=== PATIENT | male | born 1965 | race Caucasian/White ===

== ENCOUNTER 2019-11-24 10:25 | Inpatient (IN) ==
[2019-11-24] MEDS ORDERED: CARBOHYDRATES FOR HYPOGLYCEMIA PO PRN (11:27)
[2019-11-24] MEDS ORDERED: GLUCOSE 40% GEL 15 GM TUBE PO PRN (11:27)
[2019-11-24] MEDS ORDERED: ACETAMINOPHEN 325 MG TAB PO PRN (11:27)
[2019-11-24] MEDS ORDERED: ONDANSETRON INJ 2 MG/ML 2 ML VIAL IV PRN (11:27)
[2019-11-24] MEDS ORDERED: GLUCOSE 10 TABS/TUBE PO PRN (11:27)
[2019-11-24] MEDS ORDERED: GLUCAGON FOR INJ 1 MG VIAL SQ PRN (11:27)
[2019-11-24] MEDS ORDERED: DEXTROSE 50% 50 ML SYRINGE IV PRN (11:27)
[2019-11-24] MEDS ORDERED: LACTATED RINGER'S 1,000 ML IV SCH (11:30)
[2019-11-24] MEDS ORDERED: KETOROLAC 30 MG/ML VIAL IV PRN (11:33)
--- NOTE | 2019-11-24 11:42 | History & Physical Report ---
Date of Service November 24, 2019 Assessment & Plan (1) Acute cholecystitis: -Admit to [facility] -Consulted Gastroenterology, Dr. Dash, plans for ERCP, continue n.p.o.- discussed with him - plan for ERCP today -Consider general surgery consult pending ERCP findings-discussed with Dr. Sutton over the phone earlier today -IV Zosyn -Pain control on board -EKG reviewed as above -Checking labs including CBC, PRP, LFT, INR, mag (2) Pancreatitis: -Lipase in process -Continue n.p.o. status -IV LR 125 mL/hr -Lipase elevated at OSH 9484, repeat labs now, trend with morning labs show improvement -Secondary to likely obstruction -CT reviewed from outside hospital: CBD and hepatic biliary tree normal, cholecystic fluid, no ultrasound was completed as there was not a tech, + hepatic steatosis and hepatomegaly (3) DM type 2 (diabetes mellitus, type 2): -Hold metformin and trulicity, last took medication yesterday (missed trulicity which was supposed to be dosed on Friday) -Continue ISS with Accu-Cheks ACHS -Check A1c with a.m. labs, reports last check was >9, and that physician had recommended he was on insulin. -Pt needs counseling on diet and carb restriction prior to d/c -Consider consulting cosmetology educator after surgical procedure (4) DVT prophylaxis: - tedjeannette, scd CODE: FULL Dispo: From home, likely to remain in the hospital x1 to 2 days History of Present Illness Primary Care Provider: Samir Gill This is a 54 yo M with PMHx of noninsulin dependent diabetes who presents from outside hospital, [place], for acute cholecystitis and pancreatitis. Patient's pain began on Friday. He had eaten a Whopper from [employer] on Friday for dinner and the pain began about 2 hrs later. On Friday he did not have any abd issues. Yesterday the patient proceeded to go about his normal ADLs, but then had dinner which was scrapple fried in butter, and reported that his pain worsened over the course of the next 5 hours. He admits to drinking socially over the weekend prior to sx - had [place] x 5 drinks on Friday and also had two beers on Friday night. He presented to [facility] last evening was found to have a WBC = 18 K, bilirubin = 1.3, and was started on IV Cipro/Flagyl. He was afebrile throughout their stay there. Upon repeat labs this morning at OSH he was found to have WBC=24, bilirubin up to 4.6. Lipase = 4984, and AST = 867, there hospital does not have on-call dealer support technician to perform ERCP/MRCP nor did they have gastroenterology or surgery available today with the holiday. The patient is here with his . He notes his pain is very well controlled at this point, and denies abdominal discomfort and nausea. He has not eaten since Friday evening. Allergies Allergy/AdvReac Type Severity Reaction Status Date / Time Sulfa (Sulfonamide Allergy Rash Verified 11/24/19 13:06 Antibiotics) Home Medications Home Medications Medication Instructions Recorded Confirmed Type Centrum Silver 1 tab PO DAILY 11/24/19 11/24/19 History Trulicity 0.75 mg INJ WK 11/24/19 11/24/19 History lorazepam 1 mg PO HS PRN 11/24/19 11/24/19 History metformin 500 mg PO BID 11/24/19 11/24/19 History vit D3-folic [id number] 11/24/19 History Past Med/Surg History Social History Preferred Language: Hungarian Communication Ability: Effective Cutting Room Supervisor Required: No Beliefs That Will Affect Care: None Current Living Situation: Spouse Other Information That Helps Us Care for You: No Feels Safe at Home: Yes Safety Concerns: Feels Safe At This Time Smoking Status: Former smoker Hx Alcohol Use: No Hx Substance Use: No Review of Systems Review of Systems: Constitutional: No fever, sweats or chills Eyes: No diplopia, no worsening or blurred vision ENT: normal hearing, no trouble swallowing Respiratory: No cough, sputum, dyspnea at rest or on exertion Cardiovascular: No chest pain, tightness or palpitations Abdomen: As per HPI. Currently no pain, nausea, vomiting, diarrhea or constipation Musculoskeletal: No joint pain, calf pain, swelling Neurologic: No weakness, numbness/tingling, or balance problems Psychiatric: No anxiety or depression Skin: No rash or itch Physical Exam Physical Exam: General: awake, alert, no apparent distress, + jaundice Head: Normocephalic, atraumatic ENT: PERRL, EOMI, + anicteric sclera, no pharyngeal exudate, mucous membranes moist Chest: Clear to auscultation, on room air, no adventitious breath sounds Cardiac: Regular rate and rhythm, no murmur, no JVD, normal peripheral pulses, good capillary refill Abdominal: NABS x 4 quadrants, soft, nondistended, nontender to palpation, no rebound, guarding or tenderness Extremities: Normal inspection, no peripheral edema or erythema, calfs nontender to palpation Psych: Normal mood and affect Neuro: AAO x 3, strength intact bilaterally and related 5/5, no motor deficits, speech is clear, no peripheral sensory deficits Results & Data Diagnostic Findings CT from [facility] reviewed ECG Additional Comments: Reviewed from OSH records: no acute ischemic findings or ST wave changes. NSR RBBB Vent rate: 79 bpm MN interval- 140 ms QRS = 110 ms QT/QTC = 376/431 P-R-T axes 43 -3 25 Code Status & VTE Plan Code Status Full Code Supervising Physician Co-Signing Physician Notes Patient seen and examined after BHAVNA. I agree with her note above. Patient was transferred from another facility secondary to presumed cholecystitis and possible biliary obstruction. At the time of evaluation, the patient was completely pain-free. He was minimally jaundiced but had no other complaints. Laboratory work from outside facility was reviewed, patient had significant elevated WBCs along with bilirubin of 4 and lipase over 9000. On exam, patient is minimally jaundiced and icteric. Heart is regular no murmurs. Lungs are clear to auscultation. Abdomen soft, mildly distended but nontender. The remainder exam is as noted above. Plan will be to admit the patient for presumed cholecystitis. I do agree with antibiotics as ordered. GI was consulted with consideration to ERCP. Patient will also likely need cholecystectomy in the very near future once biliary obstruction has been ruled out. PG Care Time/CCT Total # of Minutes Spent Total Time Spent with Patient: Total time spent is greater than 50% in coordination of care (as documented) at patient's floor/unit and/or counseling patient:
[2019-11-24] MEDS ORDERED: PATIENT'S ALLERGY INFO NEEDS ENTERED SCH (12:45)
[2019-11-24] MEDS ORDERED: Nursing to Pharmacy Communication ONE (12:54)
[2019-11-24 12:59] LABS: Hematocrit (blood only) 43.6 % (42-52); Mean Corpuscular Hemoglobin 30.4 pg (25-34); Mean Corpuscular Hgb Conc 34.4 g/dL (32-36); Mean Corpuscular Volume 88.4 fL (80-100); Mean Platelet Volume 10.5 fL (7.4-10.4); Platelet Count 252 K/uL (130-400); RDW Coefficient of Variation 13.6 % (11.5-14.5); Red Blood Count 4.93 M/uL (4.7-6.1); White Blood Count 26.67 K/uL (4.8-10.8)
[2019-11-24] MEDS ORDERED: CIPROFLOXACIN 400 MG/200 ML BAG IV SCH (13:00)
[2019-11-24 13:07] LABS: INR 1.2 (0.9-1.1); Prothrombin Time 11.8 Seconds (9.0-12.0)
[2019-11-24] MEDS ORDERED: PIPERACILL/TAZOBAC CONSULT ACTIVE PRN (13:10)
[2019-11-24 13:20] LABS: Basophils # (auto) 0.01 K/uL (0-0.2); Immature Granulocytes # (auto) 0.16 K/uL (0.00-0.02); Immature Granulocytes % (auto) 0.6 %; Lymphocytes # (auto) 1.66 K/uL (1.2-3.4); Lymphocytes % (auto) 6.2 %; Monocytes # (auto) 1.28 K/uL (0.11-0.59); Monocytes % (auto) 4.8 %; Neutrophils # (auto) 23.56 K/uL (1.4-6.5); Neutrophils % (auto) 88.4 %
[2019-11-24] MEDS ORDERED: PIPERACILLIN/TAZOBACTAM 3.375 GM in DEXTROSE 5% 100 ML IV STA (13:25)
[2019-11-24] MEDS: metroNIDAZOLE 500 MG/100 ML BAG IV SCH ×2 (13:30→21:05)
--- NOTE | 2019-11-24 13:31 | History & Physical Report ---
Date of Service November 24, 2019 Assessment & Plan (1) Cholangitis: In view of rising WBC, biliary panc and bilirubin >4, this is high probability for choledocholithiasis. Plan for ERCP today. Start IV Zosyn. IV Hydration. Labs Surgery consult for cholecystectomy (2) Pancreatitis: (3) Acute cholecystitis: History of Present Illness Primary Care Provider: Samir Gill 54 years old male patient with medical comorbids of DM, transferred from [facility] for suspected cholangitis. He started having intermittent epigastric abdominal pain fro the last 3 days, nonradiating, worsening, dull, associated with nausea and vomiting, aggravated after eating fatty food. Found to have acute pancreatitis and rising bilirubin and WBC count. He denies any fever or chills, no diarrhea or constipation, no similar pain in the past, no weight loss. CT scan there showed cholecystitis. Allergies Allergy/AdvReac Type Severity Reaction Status Date / Time Sulfa (Sulfonamide Allergy Rash Verified 11/24/19 13:06 Antibiotics) Home Medications Home Medications Medication Instructions Recorded Confirmed Type Centrum Silver 1 tab PO DAILY 11/24/19 11/24/19 History Trulicity 0.75 mg INJ WK 11/24/19 11/24/19 History lorazepam 1 mg PO HS PRN 11/24/19 11/24/19 History metformin 500 mg PO BID 11/24/19 11/24/19 History vit D3-folic [id number] 11/24/19 History Past Med/Surg History Social History Preferred Language: Yemeni Communication Ability: Effective Protozoology Teacher Required: No Beliefs That Will Affect Care: None Current Living Situation: Spouse Other Information That Helps Us Care for You: No Feels Safe at Home: Yes Safety Concerns: Feels Safe At This Time Smoking Status: Former smoker Hx Alcohol Use: No Hx Substance Use: No Review of Systems no fever, no chills, no fatigue and no weight loss no eye pain and no worsening vision no tinnitus, no dizziness, no nasal discharge and no epistaxis no cough, no dyspnea, no dyspnea on exertion and no wheezing no chest pain, no orthopnea, no palpitations and no edema as per Subjective / HPI no stiffness and no myalgia no localized weakness, no paralysis, no tremor(s) and no headache(s) no polydipsia and no polyuria no easy bleeding and no night sweats Physical Exam Constitutional: + well hydrated, cooperative and comfortable Eyes: PERRL, conjunctivae normal, anicteric sclerae ENMT: external ear and nose normal, oropharynx normal Neck: normal visual inspection and trachea midline Respiratory: normal respiratory effort, lungs clear to auscultation Auscultation: no wheezes Cardiovascular: RRR, no murmur, no edema Gastrointestinal (Abdomen): normal bowel sounds, soft, nontender, no hepatosplenomegaly Musculoskeletal: no cyanosis or clubbing, extremities motor strength 5/5 Skin: no rashes, warm and dry Neurologic: awake; no focal motor deficits Motor/Sensory: no tremor Results & Data Vital Signs (Past 12 Hours) Vital Signs Temp Pulse Resp BP Pulse Ox 11/24/19 12:30 36.8 C 97 H 18 147/85 H 97 Laboratory Results Laboratory Results - last 24 hr 11/24/19 11/24/19 11/24/19 12:44 12:44 12:48 WBC 26.67 H RBC 4.93 Hgb 15.0 Hct 43.6 MCV 88.4 MCH 30.4 MCHC 34.4 RDW Std Deviation 44.0 RDW Coeff of Ryley 13.6 Plt Count 252 MPV 10.5 H Immature Gran % (Auto) 0.6 Neut % (Auto) 88.4 Lymph % (Auto) 6.2 [place] % (Auto) 4.8 Eos % (Auto) 0.0 Baso % (Auto) 0.0 Immature Gran # (Auto) 0.16 H Neut # (Auto) 23.56 H Lymph # (Auto) 1.66 [place] # (Auto) 1.28 H Eos # (Auto) 0.00 Baso # (Auto) 0.01 PT 11.8 INR 1.2 H Magnesium Pending Total Bilirubin Pending Direct Bilirubin Pending AST Pending ALT Pending Alkaline Phosphatase Pending Total Protein Pending Albumin Pending Lipase Pending
[2019-11-24 13:33] LABS: Albumin Level 3.6 gm/dl (3.4-5.0); Bilirubin Direct 3.4 mg/dl (0-0.2); Bilirubin,Total 5.5 mg/dl (0.2-1); Magnesium 2.1 mg/dl (1.8-2.4); Total Protein 7.5 gm/dl (6.4-8.2)
[2019-11-24] MEDS ORDERED: MIDAZOLAM HCL 1 MG/ML 2ML VIAL ONE (13:33)
[2019-11-24] MEDS ORDERED: PROPOFOL IV EMULSION 10 MG/ML 20 ML VIAL IV ONE (13:33)
[2019-11-24] MEDS ORDERED: INDOMETHACIN 50 MG SUPP PR ONE (13:34)
[2019-11-24] MEDS: SODIUM CHLORIDE 0.9% 1000ML 1,000 ML IV SCH ×2 (13:38→20:00)
[2019-11-24] MEDS: INSULIN ASPART 100 UNITS/ML 3 ML PEN SC SCH ×3 (13:42→23:51)
[2019-11-24] MEDS ORDERED: INDOMETHACIN 50 MG SUPP PR SCH (13:45)
--- NOTE | 2019-11-24 14:22 | Anesthesiology Consultation ---
Date of Service November 24, 2019 Assessment & Plan ASA [id number] Proposed Anesthesia Anesthesia Type: General Risk / Benefits Reviewed With: PT / POA / Parent / Guardian, Accepts Plan and Informed Consent Obtained History Surgery Operation Date: 11/24/19 14:00 Proposed Procedures p Endoscopic Retrograde Cholangiopancreato - Ezra Dash MD Height/Weight Height: 5 ft 11 in Weight: 92.533 kg Allergies Allergy/AdvReac Type Severity Reaction Status Date / Time Sulfa (Sulfonamide Allergy Rash Verified 11/24/19 13:06 Antibiotics) Medications Home Medications Medication Instructions Recorded Confirmed Last Taken Centrum Silver 1 tab PO DAILY 11/24/19 11/24/19 11/23/19 Trulicity 0.75 mg INJ WK 11/24/19 11/24/19 11/16/19 lorazepam 1 mg PO HS PRN 11/24/19 11/24/19 11/22/19 metformin 500 mg PO BID 11/24/19 11/24/19 11/23/19 vit D3-folic [id number]-B12 11/24/19 11/23/19 Active Medications Generic Name Dose Route Start Last Admin Trade Name Freq PRN Reason Stop Dose Admin Metronidazole 500 mg in 100 mls @ 100 mls/hr 11/24/19 13:00 11/24/19 13:30 Flagyl IV 12/04/19 12:59 100 mls/hr Q8H GALDINO Administration Protocol Sodium Chloride 1,000 mls @ 125 mls/hr 11/24/19 13:45 11/24/19 13:38 Nss 1000ml IV 11/25/19 13:44 125 mls/hr .Q8H GALDINO Administration Insulin Aspart 0 units 11/24/19 13:00 11/24/19 13:42 Novolog Flexpen SC 12/24/19 12:59 5 units Q6 GALDINO Administration NPO Date Last Intake of Fluids: 11/23/19 Time Last Intake of Fluids: 17:00 Date Last Intake of Solids: 11/23/19 Time Last Intake of Solids: 17:00 Exercise / Class Metabolic Activity II 4-5 Yardwork/Stairs/Walk up hill Past Anesthesia History No Hx of Anesthesia Complications and No Family Hx of Anesthesia Complications History of PONV No Hx of PONV and No Hx of Motion Sickness Social History Smoking Status: Former smoker Hx Alcohol Use: No Hx Substance Use: No Review of Systems denies fever/cough/ colds/ chest pain/ SOB/ RYAN Constitutional: no fever and no chills Respiratory: no cough and no dyspnea denies RYAN Cardiovascular: no chest pain and no dyspnea on exertion Physical Exam Vital Signs Last Vital Signs Temp 36.8 C 11/24/19 12:30 Pulse 97 H 11/24/19 12:30 Resp 18 11/24/19 12:30 BP 147/85 H 11/24/19 12:30 Pulse Ox 97 11/24/19 12:30 ENMT Mouth: no TMJ abnormality and no dentition abnormality Thyromental Distance: > or= 3.5 Finger Breadths Mallampati Class: II Neck neck extension not limited Respiratory normal respiratory effort; no respiratory distress Auscultation: lungs clear to auscultation bilaterally Cardiovascular Rate/Rhythm: regular rate and regular rhythm Neurologic moves all extremities Psychiatric Orientation: alert and oriented x 3 Testing Laboratory Results 11/24/19 12:48 PT 11.8 Seconds (9.0-12.0) 11/24/19 12:44 INR 1.2 (0.9-1.1) H 11/24/19 12:44 11/24/19 13:35 POC Glucose 309 H*
[2019-11-24] MEDS ORDERED: fentaNYL citrate 100 MCG/2 ML VIAL ONE (14:40)
[2019-11-24] MEDS ORDERED: ONDANSETRON INJ 2 MG/ML 2 ML VIAL ONE (14:47)
[2019-11-24] MEDS ORDERED: PHENYLEPHRINE HCL 10 MG/ML VIAL ONE (14:47)
[2019-11-24] MEDS ORDERED: ATROPINE SULFATE 0.1 MG/ML 10ML SYR IV PRN (14:53)
[2019-11-24] MEDS ORDERED: ePHEDrine sulfate 50 MG/ML AMP IV PRN (14:53)
[2019-11-24] MEDS ORDERED: fentaNYL citrate 100 MCG/2 ML VIAL IV PRN (14:53)
[2019-11-24] MEDS ORDERED: ePHEDrine sulfate 50 MG/ML AMP ONE (14:59)
--- NOTE | 2019-11-24 15:07 | Operative Report ---
Post Operative Report Pre & Post Diagnosis Operation Date: 11/24/19 14:00 Pre-Op Diagnosis: ACUTE CHOLECYSTITIS, PANCREATITIS Post-Op Diagnosis: ACUTE CHOLECYSTITIS, PANCREATITIS I identified the patient and participated in the time-out.: Yes Procedure Operation Date: 11/24/19 14:00 Actual Procedures p Endoscopic Retrograde Cholangiopancreato - Ezra Dash MD Surgeon Ezra Dash MD Garment Parts Cutter Machine None Estimated Blood Loss 0 Findings See Below (CBD stone, pus, Sphincterotomy and CBD stents placed) Specimens None Description of Procedure ERCP I attest to the content of the Intraoperative Record and any orders documented therein. Any exceptions are noted below.
--- NOTE | 2019-11-24 15:16 | GI REPORT ---
Patient Name: Jose Tirado Procedure Date: 11/24/2019 1:51 PM Date of : 1965 Admit Type: Inpatient Age: 54 Gender: Male Attending MD: Ezra Dash MD Procedure: Upper GI endoscopy Providers: Ezra Dash MD Referring MD: Adithya Basurto Do, Chunjie Yang, . Md Indications: Epigastric abdominal pain Medicines: General Anesthesia Complications: No immediate complications. Estimated Blood Loss: Estimated blood loss: none. Procedure: Pre-Anesthesia Assessment: - Prior to the procedure, a History and Physical was performed, and patient medications, allergies and sensitivities were reviewed. The patient's tolerance of previous anesthesia was reviewed. - The risks and benefits of the procedure and the sedation options and risks were discussed with the patient. All questions were answered and informed consent was obtained. - Patient identification and proposed procedure were verified prior to the procedure by the physician and the nurse. The procedure was verified in the procedure room. - Pre-procedure physical examination revealed no contraindications to sedation. After obtaining informed consent, the endoscope was passed under direct vision. Throughout the procedure, the patient's blood pressure, pulse, and oxygen saturations were monitored continuously. The Endoscope was introduced through the mouth, and advanced to the second part of duodenum. The upper GI endoscopy was accomplished without difficulty. The patient tolerated the procedure well. Findings: The examined esophagus was normal. The entire examined stomach was normal. The duodenal bulb and second portion of the duodenum were normal. Impression: - Normal esophagus. - Normal stomach. - Normal duodenal bulb and second portion of the duodenum. - No specimens collected. Recommendation: - Perform an ERCP today. Ezra Dash MD 11/24/2019 3:16:22 PM This report has been signed electronically. Note Initiated On: 11/24/2019 1:51 PM Number of Addenda: 0 I attest to the content of the Intraoperative Record and orders documented therein, exceptions below {[id number]}
--- NOTE | 2019-11-24 15:25 | GI REPORT ---
Patient Name: Jose Tirado Procedure Date: 11/24/2019 1:52 PM Date of : 1965 Admit Type: Inpatient Age: 54 Gender: Male Attending MD: Ezra Dash MD Procedure: ERCP Providers: Ezra Dash MD Referring MD: Adithya Basurto Do, Chunjie Yang, . Md Indications: Abdominal pain of suspected biliary origin, Abnormal abdominal CT, For therapy of ascending cholangitis, Jaundice, Elevated liver enzymes Medicines: General Anesthesia Complications: No immediate complications. Estimated Blood Loss: Estimated blood loss: none. Procedure: Pre-Anesthesia Assessment: - Prior to the procedure, a History and Physical was performed, and patient medications, allergies and sensitivities were reviewed. The patient's tolerance of previous anesthesia was reviewed. - The risks and benefits of the procedure and the sedation options and risks were discussed with the patient. All questions were answered and informed consent was obtained. - Patient identification and proposed procedure were verified prior to the procedure by the physician and the nurse. The procedure was verified in the procedure room. - Pre-procedure physical examination revealed no contraindications to sedation. After obtaining informed consent, the scope was passed under direct vision. Throughout the procedure, the patient's blood pressure, pulse, and oxygen saturations were monitored continuously. The Scope was introduced through the mouth, and advanced to the duodenum and used to inject contrast into the bile duct. The ERCP was accomplished without difficulty. The patient tolerated the procedure well. Findings: The biostatistics manager film was normal. The esophagus was successfully intubated under direct vision. The scope was advanced to a normal major papilla in the descending duodenum without detailed examination of the pharynx, larynx and associated structures, and upper GI tract. The upper GI tract was grossly normal. The major papilla was mildly bulging with spontaneous flow of pus. A 0.035 inch straight standard Acrobat wire was passed into the biliary tree from the first attempt. The Fusion OMNI sphincterotome was passed over the guidewire and the bile duct was then deeply cannulated. Pus was aspirated to decompress the duct. Contrast was injected. I personally interpreted the bile duct images. Ductal flow of contrast was adequate. Image quality was adequate. Contrast extended to the main bile duct. Opacification of the main bile duct was successful. The maximum diameter of the ducts was 6 mm. There was no opacification of the gallbladder suggestive of cystic duct obstruction. Biliary sphincterotomy was made with a monofilament traction (standard) sphincterotome using ERBE electrocautery. There was no post-sphincterotomy bleeding. The biliary tree was swept with a 10 mm balloon starting at the bifurcation. One stone was removed. No stones remained. Pus was swept from the duct. Two 10 Fr by 7 cm and 7 Fr by 7 cm plastic biliary stents with a single external flap and a single internal flap were placed into the common bile duct. Pus flowed through the stents. The stents were in good position. Indomethacin 100 mg was given via suppository to decrease the risk of post-ERCP pancreatitis (PEP). PD was not cannulated nor injected with contrast. Impression: - Choledocholithiasis was found. Complete removal was accomplished by biliary sphincterotomy and balloon extraction. - The biliary tree was swept and excessive amount of pus was found consistent with Ascending cholangitis. - Two plastic biliary stents were placed into the common bile duct. Recommendation: - Return patient to hospital cain for ongoing care. - Avoid aspirin and nonsteroidal anti-inflammatory medicines for 5 days. - Repeat ERCP in 4 - 6 weeks to remove stents. - Refer to a surgeon for cholecystectomy. - Continue IV ABx and need to complete a 10 days course of ABx upon discharge, can use PO Ciprofloxacin. - IV Hydration. Ezra Dash MD 11/24/2019 3:25:18 PM This report has been signed electronically. Note Initiated On: 11/24/2019 1:52 PM Number of Addenda: 0 I attest to the content of the Intraoperative Record and orders documented therein, exceptions below {[id number]}
--- NOTE | 2019-11-24 15:35 | Fluoroscopy Report ---
[place] ERCP biliary ductal CLINICAL HISTORY: ERCP COMPARISON STUDY: None. FLUOROSCOPY TIME: 42 seconds. FLUOROSCOPIC IMAGES: 13 FINDINGS: Fluoroscopy was provided during ERCP. These images demonstrate cannulation of the common bi le duct with balloon sweep through the common bile duct. No biliary ductal dilatation is identified. 2 biliary stents are noted on the final images. These appear appropriately positioned. IMPRESSION: Fluoroscopy provided for ERCP with biliary stent placement. ACT 112: Negative or not required by law. Electronically signed by: Kanu Bangura M.D. 11/24/2019 3:33 PM
--- NOTE | 2019-11-24 15:56 | Anesthesiology Progress Note ---
Date of Service November 24, 2019 Anesthesia Post Procedure Vital Signs Vital Signs: Temp Pulse Pulse Resp BP BP Pulse Ox 11/24/19 15:55 37.2 C 91 H 10 L 133/69 97 11/24/19 15:45 95 H 16 114/63 96 11/24/19 15:35 92 H 12 116/66 95 11/24/19 15:25 97 H 19 115/68 94 11/24/19 15:17 36.9 C 105 H 10 L 122/69 95 11/24/19 12:30 36.8 C 97 H 18 147/85 H 97 Pain Intensity Right Upper Abdomen: Pain Intensity: 3 Transfer of Care Handoff Completed per policy Notes Mental Status: alert / awake / arousable and participated in evaluation Patient Amnestic to Procedure: Yes Nausea / Vomiting: adequately controlled Pain: adequately controlled Airway Patency, RR, SpO2: stable & adequate BP & HR: stable & adequate Hydration State: stable & adequate Anesthetic Complications: no major complications apparent and Pt Satisfied with anesthetic care
[2019-11-24] MEDS: HYDROmorphone INJ 0.5 MG/0.5 ML SYR IV PRN (16:14)
[2019-11-24] MEDS: LORazepam 1 MG TAB PO PRN (20:00)
[2019-11-24] MEDS: PIPERACILLIN/TAZOBACTAM 3.375 GM in DEXTROSE 5% 100 ML IV SCH (20:05)
--- NOTE | 2019-11-24 21:05 | Surgery Consultation ---
Date of Consultation November 24, 2019 Assessment & Plan (1) Cholangitis: pt is a 54 year-old male who was transferred from other hospital for acute cholecystitis, with gallstone, cholangitis, pancreatitis, IMP:acute cholecystitis, cholelithiasis, cholangitis, pancreatitis Plan, agree with IV antibiotic, repeat labs in am, possible do laparoscopic cholecystectomy on Friday, once lipase close to normal , D/W benefits, risks and alternatives of the surgery, pt understood, he agrees with the surgery, I answered all questions, will F/U (2) Pancreatitis: (3) Acute cholecystitis: Supervising Physician Co-Signing Physician Notes Patient seen and examined after BHAVNA. I agree with her note above. Patient was transferred from another facility secondary to presumed cholecystitis and possible biliary obstruction. At the time of evaluation, the patient was completely pain-free. He was minimally jaundiced but had no other complaints. Laboratory work from outside facility was reviewed, patient had significant elevated WBCs along with bilirubin of 4 and lipase over 9000. On exam, patient is minimally jaundiced and icteric. Heart is regular no murmurs. Lungs are clear to auscultation. Abdomen soft, mildly distended but nontender. The remainder exam is as noted above. Plan will be to admit the patient for presumed cholecystitis. I do agree with antibiotics as ordered. GI was consulted with consideration to ERCP. Patient will also likely need cholecystectomy in the very near future once biliary obstruction has been ruled out. History of Present Illness Attending Physician: Adithya Basurto, CC : abdominal pain 54 years old male patient with medical comorbids of DM, transferred from [facility] for suspected cholangitis. He started having intermittent epigastric abdominal pain fro the last 3 days, nonradiating, worsening, dull, associated with nausea and vomiting, aggravated after eating fatty food. Found to have acute pancreatitis and rising bilirubin and WBC count. He denies any fever or chills, no diarrhea or constipation, no similar pain in the past, no weight loss. CT scan there showed cholecystitis. I ( Melissa Sutton MD ) got a call for consult acute cholecystitis. I reviewed pt's H/P, labs. CT scan with pt, pt feels better, less RUQ and back pain, no nausea, no vomiting, S/P ERCP, D/W GI doctor. Allergies Allergy/AdvReac Type Severity Reaction Status Date / Time Sulfa (Sulfonamide Allergy Rash Verified 11/24/19 13:06 Antibiotics) Home Medications Home Medications Medication Instructions Recorded Confirmed Type Centrum Silver 1 tab PO DAILY 11/24/19 11/24/19 History Trulicity 0.75 mg INJ WK 11/24/19 11/24/19 History lorazepam 1 mg PO HS PRN 11/24/19 11/24/19 History metformin 500 mg PO BID 11/24/19 11/24/19 History vit D3-folic [id number] 11/24/19 History Patient History Social History Preferred Language: Slovenian Communication Ability: Effective [employer] Work[employer] Required: No Beliefs That Will Affect Care: None Current Living Situation: Spouse Other Information That Helps Us Care for You: No Feels Safe at Home: Yes Safety Concerns: Feels Safe At This Time Smoking Status: Former smoker Hx Alcohol Use: No Hx Substance Use: No Review of Systems Review of Systems: All systems reviewed & are unremarkable except as noted in HPI & below DM Physical Exam Constitutional: WD/WN, vitals as above well developed and well nourished ENMT: external ear and nose normal, oropharynx normal Neck: trachea midline, no thyromegaly Respiratory: normal respiratory effort, lungs clear to auscultation Cardiovascular: RRR, no murmur, no edema Rate/Rhythm: regular rate and regular rhythm Heart Sounds: normal S1 and normal S2 Gastrointestinal (Abdomen): normal bowel sounds, soft, nontender, no hepatosplenomegaly Percussion/Palpation: abdomen soft mild tenderness at RUQ, no rebound pain, BS + Musculoskeletal: no cyanosis or clubbing, extremities motor strength 5/5 Skin: no rashes, warm and dry Neurologic: patellar DTR's 2+ bilat, sensation intact Psychiatric: A+Ox3, euthymic affect Orientation: alert and oriented x 3 Results & Data Vital Signs (Past 12 Hours) Vital Signs Temp Pulse Pulse Resp BP BP Pulse Ox 11/24/19 19:23 36.9 C 98 H 18 142/80 H 97 11/24/19 18:16 36.7 C 84 15 113/70 95 11/24/19 17:02 36.8 C 83 16 116/71 96 11/24/19 16:29 36.6 C 86 16 125/76 95 11/24/19 16:00 36.9 C 92 H 16 117/72 95 11/24/19 15:55 37.2 C 91 H 10 L 133/69 97 11/24/19 15:45 95 H 16 114/63 96 11/24/19 15:35 92 H 12 116/66 95 11/24/19 15:25 97 H 19 115/68 94 11/24/19 15:17 36.9 C 105 H 10 L 122/69 95 11/24/19 12:30 36.8 C 97 H 18 147/85 H 97 Laboratory Results Abnormal lab results 11/24/19 11/24/19 11/24/19 Range/Units 12:44 12:44 12:48 WBC 26.67 H (4.8-10.8) K/uL MPV 10.5 H (7.4-10.4) fL Immature Gran # (Auto) 0.16 H (0.00-0.02) K/uL Neut # (Auto) 23.56 H (1.4-6.5) K/uL [place] # (Auto) 1.28 H (0.11-0.59) K/uL INR 1.2 H (0.9-1.1) POC Glucose (70-99) Total Bilirubin 5.5 H (0.2-1) mg/dl Direct Bilirubin 3.4 H (0-0.2) mg/dl AST 633 H (15-37) U/L ALT 1236 H (12-78) U/L Alkaline Phosphatase 146 H (45-117) U/L Lipase 5834 H (73-393) U/L 11/24/19 11/24/19 11/24/19 Range/Units 13:35 15:21 18:19 WBC (4.8-10.8) K/uL MPV (7.4-10.4) fL Immature Gran # (Auto) (0.00-0.02) K/uL Neut # (Auto) (1.4-6.5) K/uL [place] # (Auto) (0.11-0.59) K/uL INR (0.9-1.1) POC Glucose 309 H* 226 H 219 H (70-99) Total Bilirubin (0.2-1) mg/dl Direct Bilirubin (0-0.2) mg/dl AST (15-37) U/L ALT (12-78) U/L Alkaline Phosphatase (45-117) U/L Lipase (73-393) U/L
[2019-11-25] MEDS: PIPERACILLIN/TAZOBACTAM 3.375 GM in DEXTROSE 5% 100 ML IV SCH ×3 (04:57→20:17)
[2019-11-25] MEDS: metroNIDAZOLE 500 MG/100 ML BAG IV SCH ×3 (04:57→23:58)
[2019-11-25] MEDS: SODIUM CHLORIDE 0.9% 1000ML 1,000 ML IV SCH (04:57)
[2019-11-25 05:02] LABS: Basophils # (auto) 0.03 K/uL (0-0.2); Basophils % (auto) 0.2 %; Eosinophils # (auto) 0.44 K/uL (0-0.5); Eosinophils % (auto) 2.2 %; Hematocrit (blood only) 38.8 % (42-52); Hemoglobin 13.3 g/dL (14.0-18.0); Immature Granulocytes # (auto) 0.09 K/uL (0.00-0.02); Immature Granulocytes % (auto) 0.5 %; Lymphocytes # (auto) 1.96 K/uL (1.2-3.4); Lymphocytes % (auto) 9.9 %; Mean Corpuscular Hemoglobin 30.9 pg (25-34); Mean Corpuscular Hgb Conc 34.3 g/dL (32-36); Mean Platelet Volume 10.6 fL (7.4-10.4); Monocytes # (auto) 1.05 K/uL (0.11-0.59); Monocytes % (auto) 5.3 %; Neutrophils # (auto) 16.32 K/uL (1.4-6.5); Neutrophils % (auto) 81.9 %; Platelet Count 192 K/uL (130-400); RDW Coefficient of Variation 13.8 % (11.5-14.5); Red Blood Count 4.31 M/uL (4.7-6.1); White Blood Count 19.89 K/uL (4.8-10.8)
[2019-11-25 05:11] LABS: INR 1.4 (0.9-1.1)
[2019-11-25 05:28] LABS: Albumin Level 2.9 gm/dl (3.4-5.0); BUN Creatinine Ratio 15.1 (10-20); Bilirubin Direct 3.5 mg/dl (0-0.2); Calcium 8.1 mg/dl (8.5-10.1); Creatinine Clr Calc Pharmacy 86.6 ml/min; Est GFR (African American) 85.3; Est GFR (Non-African American) 73.6; Potassium 4.1 mmol/L (3.5-5.1)
[2019-11-25 05:32] LABS: Albumin Globulin Ratio 0.8 (0.9-2); Bilirubin,Total 4.9 mg/dl (0.2-1); Globulin 3.5 gm/dl (2.5-4.0); Total Protein 6.4 gm/dl (6.4-8.2)
[2019-11-25 05:35] LABS: Estimated Average Glucose 232 mg/dl; Hemoglobin A1C 9.7 % (4.5-5.6)
[2019-11-25] MEDS: INSULIN ASPART 100 UNITS/ML 3 ML PEN SC SCH ×4 (06:29→21:03)
--- NOTE | 2019-11-25 07:29 | Anesthesiology Progress Note ---
Date of Service November 25, 2019 Anesthesia Post Procedure Vital Signs Vital Signs: Temp Pulse Pulse Pulse Resp BP BP 11/25/19 03:55 36.9 C 89 16 143/83 H 11/24/19 23:09 37.0 C 95 H 16 141/79 H 11/24/19 19:23 36.9 C 98 H 18 142/80 H 11/24/19 18:16 36.7 C 84 15 113/70 11/24/19 17:02 36.8 C 83 16 116/71 11/24/19 16:29 36.6 C 86 16 125/76 11/24/19 16:00 36.9 C 92 H 16 117/72 11/24/19 15:55 37.2 C 91 H 10 L 133/69 11/24/19 15:45 95 H 16 114/63 11/24/19 15:35 92 H 12 116/66 11/24/19 15:25 97 H 19 115/68 11/24/19 15:17 36.9 C 105 H 10 L 122/69 11/24/19 12:30 36.8 C 97 H 18 147/85 H Pulse Ox 11/25/19 03:55 96 11/24/19 23:09 98 11/24/19 19:23 97 11/24/19 18:16 95 11/24/19 17:02 96 11/24/19 16:29 95 11/24/19 16:00 95 11/24/19 15:55 97 11/24/19 15:45 96 11/24/19 15:35 95 11/24/19 15:25 94 11/24/19 15:17 95 11/24/19 12:30 97 Pain Intensity Right Upper Abdomen: Pain Intensity: 6 Notes Mental Status: alert / awake / arousable and participated in evaluation Patient Amnestic to Procedure: Yes Nausea / Vomiting: adequately controlled Pain: adequately controlled Airway Patency, RR, SpO2: stable & adequate BP & HR: stable & adequate Hydration State: stable & adequate Anesthetic Complications: no major complications apparent and Pt Satisfied with anesthetic care
--- NOTE | 2019-11-25 09:45 | Hospitalist Progress Note ---
Date of Service November 25, 2019 Assessment & Plan (1) Acute cholecystitis: - Associated choledocholithiasis and ascending cholangitis - S/P ERCP on 11/24 - choledocholithiais with sphincterotomy, pus indicating ascending cholangitis, and 2 stents placed in the CBD - LFTS trending down; Lipase improving - continue to trend - Continue Zosyn therapy; supportive measures with pain control/anti-emetics - GI following - Recommend no NSAIDs x 5 days, Abx x 10 days, and ERCP in 4-6 wks for stent removal - Gen Surg following - anticipating possible lap weston on Friday pending lab improvements (2) Pancreatitis: - In the setting of choledocholithiasis now S/P stone removal - Lipase trending down - Continue IVF at 125 mL/hr (3) Ascending cholangitis: - Treatment as above; will need at least Abx x 10 days (4) DM type 2 (diabetes mellitus, type 2): - A1c 9.7 -- Apparently outpatient provider did recommend insulin therapy - Hold Metformin and Trulicity - Continue BSGs and ISS (5) DVT prophylaxis: - SCDs Disposition: From home; await surgical procedure/recovery; no needs anticipated Supervising Physician Co-Signing Physician Notes Pt chart reviewed and discussed with PA. Pt transferred from [facility] with acute cholecystitis and pancreatitis Improving clinically Awaiting OR on 11/26 Subjective Reports feeling well today. Did have some abdominal pain this AM which was relieved with current medication regimen. His liver labs and lipase are improving. Reports no N/V/D. Verbalizes no complaints at this time. Review of Systems Constitutional: no fever and no chills Ear, Nose, Mouth, Throat: no sore throat, no hoarseness and no dysphagia Respiratory: no cough and no dyspnea Cardiovascular: no chest pain, no palpitations, no lightheadedness and no edema Gastrointestinal: + abdominal pain (intermittent - relieved with pain meds); no nausea, no vomiting, no constipation and no diarrhea/loose stools Genitourinary: no dysuria Musculoskeletal: no body aches Integumentary: no rash Neurologic: no tingling and no numbness Physical Exam Constitutional: WD/WN, vitals as above ENMT: Ears: no hearing impairment Neck: trachea midline Respiratory: normal respiratory effort, lungs clear to auscultation Cardiovascular: RRR, no murmur, no edema Gastrointestinal (Abdomen): Inspection/Auscultation: normal bowel sounds Percussion/Palpation: + abdomen tender (mild in RUQ) and abdomen soft; no guarding and abdomen not rigid Musculoskeletal: Head/Neck/Chest: normocephalic and head atraumatic Skin: no rashes, warm and dry Neurologic: moves all extremities Psychiatric: A+Ox3, euthymic affect Results & Data Vital Signs (Past 12 Hours) Vital Signs Temp Pulse Pulse Resp BP Pulse Ox 11/25/19 07:38 36.9 C 91 H 18 150/80 H 96 11/25/19 03:55 36.9 C 89 16 143/83 H 96 11/24/19 23:09 37.0 C 95 H 16 141/79 H 98 PG Care Time/CCT Total # of Minutes Spent Total Time Spent with Patient: Total time spent is greater than 50% in coordination of care (as documented) at patient's floor/unit and/or counseling patient:
--- NOTE | 2019-11-25 10:28 | Gastroenterology Progress Note ---
Date of Service November 25, 2019 Assessment & Plan (1) Cholangitis: Continue antibiotics, total of 10 days, change to po ciprofloxicin at dc. No NSAIDs x 5 days. ERCP in 4-6 weeks. Our office will contact him to arrange. Diet and further management per surgery. GI will sign off. Present on Admission?: Yes Supervising Physician Co-Signing Physician Notes I performed a history and physical examination of the patient, including specifically on physical exam - soft, nontender abdomen. I have discussed the patient's management with Ap. Please refer to the nurse practitioner's note for the documented findings and plan of care. WBC and Bili trending down. Planned for Lap weston Recall GI if needed. Subjective Mr. Tirado is a 54 yr old male with DM-2 admitted on 11/24 for abdominal pain underwent ERCP with sphincterotomy, balloon extraction of CBD stone, pus present in the bile duct. On Zosyn/Flagyl. Pt awake, alert, oriented, passing terry, tells me he feels well this morning. No nausea/vomiting. Has mild RUQ abdomen pain relieved with analgesics. WBC 26->19 T Bili 5.5->4.9. Review of Systems Review of Systems: ROS: this morning: Gen: Denies weakness, fevers, weight loss Eyes: No eye redness, or pain, no recent vision changes Resp: No SOB, no cough Cardio: No palpitations/irregular beats, no chest pain GI: per HPI, otherwise (-). : Denies pain on urination Skin: + mild jaundice, improved. No itching or new rashes Physical Exam Constitutional: WD/WN, vitals as above Eyes: PERRL mild icterus ENMT: external ear and nose normal, oropharynx normal Neck: trachea midline, no thyromegaly Respiratory: normal respiratory effort, lungs clear to auscultation Cardiovascular: RRR, no murmur, no edema Gastrointestinal (Abdomen): Inspection/Auscultation: abdomen normal to inspection; abdomen not distended Percussion/Palpation: + abdomen tender (RUQ ) and abdomen soft Skin: + jaundice (mild) Neurologic: PERRL, EOMI, accommodation nl, no face palsy, no dysarthria Psychiatric: A+Ox3, euthymic affect Lymphatic: no cervical or axillary lymphadenopathy Results & Data Vital Signs (Past 12 Hours) Vital Signs Temp Pulse Pulse Resp BP Pulse Ox 11/25/19 07:38 36.9 C 91 H 18 150/80 H 96 11/25/19 03:55 36.9 C 89 16 143/83 H 96 11/24/19 23:09 37.0 C 95 H 16 141/79 H 98
--- NOTE | 2019-11-25 10:55 | History & Physical Bridge Note ---
Date of Service November 25, 2019 History & Physical Bridge Note I have examined the patient, reviewed the History & Physical and in the interval since the performance of the History & Physical I have noted the following changes of clinical significance: no changes noted Supervising Physician Co-Signing Physician Notes I performed a history and physical examination of the patient, including specifically on physical exam - soft, nontender abdomen. I have discussed the patient's management with Ap. Please refer to the nurse practitioner's note for the documented findings and plan of care. WBC and Bili trending down. Planned for Lap weston Recall GI if needed.
--- NOTE | 2019-11-25 10:55 | Surgery Progress Note ---
Date of Service pt is doing better, less abdominal pain, all lFT is better, no nausea, no vomiting. November 25, 2019 Assessment & Plan (1) Cholangitis: pt is a 54 year-old male who was transferred from other hospital for acute cholecystitis, with gallstone, cholangitis, pancreatitis, IMP:acute cholecystitis, cholelithiasis, cholangitis, pancreatitis Plan, agree with IV antibiotic, repeat labs in am, possible do laparoscopic cholecystectomy on Friday, once lipase close to normal , D/W benefits, risks and alternatives of the surgery, pt understood, he agrees with the surgery, I answered all questions, will F/U 11/25/2019 10:52am base on all LFT is better, I recommend to do laparoscopic cholecystectomy, possible open or cholangiogram, D/W benefits, risks and alternatives of the surgery, the risk s- infection, bleeding, injury CBD, sepsis, , pt understood, he agrees with the surgery, I answered all questions, (2) Pancreatitis: (3) Acute cholecystitis: Supervising Physician Co-Signing Physician Notes I performed a history and physical examination of the patient, including specifically on physical exam - soft, nontender abdomen. I have discussed the patient's management with Ap. Please refer to the nurse practitioner's note for the documented findings and plan of care. WBC and Bili trending down. Planned for Lap weston Recall GI if needed. Subjective Mr. Tirado is a 54 yr old male with DM-2 admitted on 11/24 for abdominal pain underwent ERCP with sphincterotomy, balloon extraction of CBD stone, pus present in the bile duct. On Zosyn/Flagyl. Pt awake, alert, oriented, passing terry, tells me he feels well this morning. No nausea/vomiting. Has mild RUQ abdomen pain relieved with analgesics. WBC 26->19 T Bili 5.5->4.9. Review of Systems Review of Systems: DM Physical Exam Constitutional: WD/WN, vitals as above well developed and well nourished ENMT: external ear and nose normal, oropharynx normal Neck: trachea midline, no thyromegaly Respiratory: normal respiratory effort, lungs clear to auscultation Cardiovascular: RRR, no murmur, no edema Rate/Rhythm: regular rate and regular rhythm Heart Sounds: normal S1 and normal S2 Gastrointestinal (Abdomen): normal bowel sounds, soft, nontender, no hepatosplenomegaly Percussion/Palpation: abdomen soft Musculoskeletal: no cyanosis or clubbing, extremities motor strength 5/5 Skin: no rashes, warm and dry Neurologic: patellar DTR's 2+ bilat, sensation intact Psychiatric: A+Ox3, euthymic affect Orientation: alert and oriented x 3 Results & Data Vital Signs (Past 12 Hours) Vital Signs Temp Pulse Pulse Resp BP Pulse Ox 11/25/19 07:38 36.9 C 91 H 18 150/80 H 96 11/25/19 03:55 36.9 C 89 16 143/83 H 96 11/24/19 23:09 37.0 C 95 H 16 141/79 H 98 Laboratory Results Abnormal lab results 11/24/19 11/24/19 11/24/19 Range/Units 12:44 12:44 12:48 WBC 26.67 H (4.8-10.8) K/uL RBC (4.7-6.1) M/uL Hgb (14.0-18.0) g/dL Hct (42-52) % MPV 10.5 H (7.4-10.4) fL Immature Gran # (Auto) 0.16 H (0.00-0.02) K/uL Neut # (Auto) 23.56 H (1.4-6.5) K/uL [place] # (Auto) 1.28 H (0.11-0.59) K/uL PT (9.0-12.0) Seconds INR 1.2 H (0.9-1.1) Glucose (70-99) mg/dl POC Glucose (70-99) Hemoglobin A1c (4.5-5.6) % Calcium (8.5-10.1) mg/dl Total Bilirubin 5.5 H (0.2-1) mg/dl Direct Bilirubin 3.4 H (0-0.2) mg/dl AST 633 H (15-37) U/L ALT 1236 H (12-78) U/L Alkaline Phosphatase 146 H (45-117) U/L Albumin (3.4-5.0) gm/dl Albumin/Globulin Ratio (0.9-2) Lipase 5834 H (73-393) U/L 11/24/19 11/24/19 11/24/19 Range/Units 13:35 15:21 18:19 WBC (4.8-10.8) K/uL RBC (4.7-6.1) M/uL Hgb (14.0-18.0) g/dL Hct (42-52) % MPV (7.4-10.4) fL Immature Gran # (Auto) (0.00-0.02) K/uL Neut # (Auto) (1.4-6.5) K/uL [place] # (Auto) (0.11-0.59) K/uL PT (9.0-12.0) Seconds INR (0.9-1.1) Glucose (70-99) mg/dl POC Glucose 309 H* 226 H 219 H (70-99) Hemoglobin A1c (4.5-5.6) % Calcium (8.5-10.1) mg/dl Total Bilirubin (0.2-1) mg/dl Direct Bilirubin (0-0.2) mg/dl AST (15-37) U/L ALT (12-78) U/L Alkaline Phosphatase (45-117) U/L Albumin (3.4-5.0) gm/dl Albumin/Globulin Ratio (0.9-2) Lipase (73-393) U/L 11/24/19 11/25/19 11/25/19 Range/Units 23:48 04:51 04:51 WBC 19.89 H (4.8-10.8) K/uL RBC 4.31 L (4.7-6.1) M/uL Hgb 13.3 L (14.0-18.0) g/dL Hct 38.8 L (42-52) % MPV 10.6 H (7.4-10.4) fL Immature Gran # (Auto) 0.09 H (0.00-0.02) K/uL Neut # (Auto) 16.32 H (1.4-6.5) K/uL [place] # (Auto) 1.05 H (0.11-0.59) K/uL PT 14.0 H (9.0-12.0) Seconds INR 1.4 H (0.9-1.1) Glucose (70-99) mg/dl POC Glucose 269 H (70-99) Hemoglobin A1c (4.5-5.6) % Calcium (8.5-10.1) mg/dl Total Bilirubin (0.2-1) mg/dl Direct Bilirubin (0-0.2) mg/dl AST (15-37) U/L ALT (12-78) U/L Alkaline Phosphatase (45-117) U/L Albumin (3.4-5.0) gm/dl Albumin/Globulin Ratio (0.9-2) Lipase (73-393) U/L 11/25/19 11/25/19 11/25/19 Range/Units 04:51 04:51 06:24 WBC (4.8-10.8) K/uL RBC (4.7-6.1) M/uL Hgb (14.0-18.0) g/dL Hct (42-52) % MPV (7.4-10.4) fL Immature Gran # (Auto) (0.00-0.02) K/uL Neut # (Auto) (1.4-6.5) K/uL [place] # (Auto) (0.11-0.59) K/uL PT (9.0-12.0) Seconds INR (0.9-1.1) Glucose 210 H (70-99) mg/dl POC Glucose 211 H (70-99) Hemoglobin A1c 9.7 H (4.5-5.6) % Calcium 8.1 L (8.5-10.1) mg/dl Total Bilirubin 4.9 H (0.2-1) mg/dl Direct Bilirubin 3.5 H (0-0.2) mg/dl AST 248 H (15-37) U/L ALT 780 H (12-78) U/L Alkaline Phosphatase 119 H (45-117) U/L Albumin 2.9 L (3.4-5.0) gm/dl Albumin/Globulin Ratio 0.8 L (0.9-2) Lipase 723 H (73-393) U/L 11/25/19 Range/Units 07:45 WBC (4.8-10.8) K/uL RBC (4.7-6.1) M/uL Hgb (14.0-18.0) g/dL Hct (42-52) % MPV (7.4-10.4) fL Immature Gran # (Auto) (0.00-0.02) K/uL Neut # (Auto) (1.4-6.5) K/uL [place] # (Auto) (0.11-0.59) K/uL PT (9.0-12.0) Seconds INR (0.9-1.1) Glucose (70-99) mg/dl POC Glucose 225 H (70-99) Hemoglobin A1c (4.5-5.6) % Calcium (8.5-10.1) mg/dl Total Bilirubin (0.2-1) mg/dl Direct Bilirubin (0-0.2) mg/dl AST (15-37) U/L ALT (12-78) U/L Alkaline Phosphatase (45-117) U/L Albumin (3.4-5.0) gm/dl Albumin/Globulin Ratio (0.9-2) Lipase (73-393) U/L
[2019-11-25] MEDS ORDERED: BACITRACIN OINT 15 GM TUBE ONE (10:59)
[2019-11-25] MEDS ORDERED: BUPIVACAINE 0.5 % 5 MG/1 ML MPF 30ML VIAL ONE (10:59)
[2019-11-25] MEDS ORDERED: LIDOCAINE HCL 1% 20 ML VIAL ONE (10:59)
[2019-11-25] MEDS ORDERED: MIDAZOLAM HCL 1 MG/ML 2ML VIAL ONE (11:05)
[2019-11-25] MEDS ORDERED: ROCURONIUM BROMIDE 10 MG/ML 5 ML VIAL ONE (11:05)
[2019-11-25] MEDS ORDERED: ONDANSETRON INJ 2 MG/ML 2 ML VIAL ONE (11:05)
[2019-11-25] MEDS ORDERED: DEXAMETHASONE SOD INJ 4 MG/ML VIAL ONE (11:05)
[2019-11-25] MEDS ORDERED: PROPOFOL IV EMULSION 10 MG/ML 20 ML VIAL IV ONE (11:05)
[2019-11-25] MEDS ORDERED: LIDOCAINE HCL 2% 2 ML VIAL/AMP(20MG/ML) INFIL ONE (11:05)
[2019-11-25] MEDS ORDERED: fentaNYL citrate 100 MCG/2 ML VIAL ONE ×2 (11:05→12:15)
--- NOTE | 2019-11-25 11:22 | Anesthesiology Consultation ---
Date of Service November 25, 2019 Assessment & Plan (1) Encounter for pre-operative examination: Chart Review Chart Review: Acceptable Risk for Surgery and Patient NOT seen in Pre Admission Testing Consults Requested none History Surgery Operation Date: 11/24/19 14:00 Proposed Procedures p Endoscopic Retrograde Cholangiopancreato - Ezra Dash MD Operation Date: 11/25/19 07:00 Proposed Procedures p Laparoscopic Cholecystectomy - Melissa Sutton MD Height/Weight Height: 5 ft 11 in Weight: 92.533 kg Allergies Allergy/AdvReac Type Severity Reaction Status Date / Time Sulfa (Sulfonamide Allergy Rash Verified 11/24/19 13:06 Antibiotics) Medications Home Medications Medication Instructions Recorded Confirmed Last Taken Centrum Silver 1 tab PO DAILY 11/24/19 11/24/19 11/23/19 Trulicity 0.75 mg INJ WK 11/24/19 11/24/19 11/16/19 lorazepam 1 mg PO HS PRN 11/24/19 11/24/19 11/22/19 metformin 500 mg PO BID 11/24/19 11/24/19 11/23/19 vit D3-folic [id number] 11/24/19 11/23/19 Active Medications Generic Name Dose Route Start Last Admin Trade Name Freq PRN Reason Stop Dose Admin Hydromorphone HCl 0.5 mg 11/24/19 11:27 11/24/19 16:14 Dilaudid IV 12/08/19 11:26 0.5 mg Q3H PRN Administration Pain Metronidazole 500 mg in 100 mls @ 100 mls/hr 11/24/19 13:00 11/25/19 06:05 Flagyl IV 12/04/19 12:59 Infused Q8H GALDINO Infusion Protocol Piperacillin Sod/Tazobactam 115 mls @ 28.75 mls/hr 11/24/19 20:00 11/25/19 08:36 Sod 3.375 gm/ Dextrose IV 12/04/19 19:59 Infused Q8H GALDINO Infusion Protocol Sodium Chloride 1,000 mls @ 125 mls/hr 11/24/19 13:45 11/25/19 04:57 Nss 1000ml IV 11/25/19 13:44 125 mls/hr .Q8H GALDINO Administration Insulin Aspart 0 units 11/24/19 13:00 11/25/19 06:29 Novolog Flexpen SC 12/24/19 12:59 2 units Q6 GALDINO Administration Ketorolac Tromethamine 30 mg 11/24/19 11:33 11/25/19 06:31 Toradol IV 11/29/19 11:32 30 mg Q6H PRN Administration Pain Lorazepam 1 mg 11/24/19 19:44 11/24/19 20:00 Ativan PO 12/24/19 19:43 1 mg HS PRN Administration Insomnia NPO Date Last Intake of Fluids: 11/24/19 Time Last Intake of Fluids: 23:59 Date Last Intake of Solids: 11/24/19 Time Last Intake of Solids: 23:59 Social History Smoking Status: Former smoker Hx Alcohol Use: No Hx Substance Use: No Physical Exam Vital Signs Last Vital Signs Temp 36.9 C 11/25/19 07:38 Pulse 91 H 11/25/19 07:38 Resp 18 11/25/19 07:38 BP 150/80 H 11/25/19 07:38 Pulse Ox 96 11/25/19 07:38 Testing Laboratory Results 11/25/19 04:51 11/25/19 04:51 PT 14.0 Seconds (9.0-12.0) H 11/25/19 04:51 INR 1.4 (0.9-1.1) H 11/25/19 04:51 Hemoglobin A1c 9.7 % (4.5-5.6) H 11/25/19 04:51 11/25/19 11/25/19 11/24/19 07:45 06:24 23:48 POC Glucose 225 H 211 H 269 H Electrocardiogram Date: 11/23/19 Findings: + NSR @ (79) and + RBBB (incomplete)
[2019-11-25] MEDS ORDERED: CEFAZOLIN 2000MG 2,000 MG/15 ML SYR IV ONE ×2 (11:24→11:42)
[2019-11-25] MEDS ORDERED: INSULIN ASPART PER UNIT 5 UNITS in SYRINGE 0 ML SC STA (11:31)
[2019-11-25] MEDS ORDERED: INSULIN ASPART PER UNIT SC ONE (12:00)
[2019-11-25] MEDS ORDERED: fentaNYL citrate 100 MCG/2 ML VIAL IV PRN (12:21)
[2019-11-25] MEDS ORDERED: PHENYLEPHRINE 100MCG/ML 5ML SYR IV PRN (12:21)
[2019-11-25] MEDS ORDERED: HYDROmorphone INJ 1 MG/ML SYRINGE IV PRN (12:21)
[2019-11-25] MEDS ORDERED: ONDANSETRON INJ 2 MG/ML 2 ML VIAL IV PRN (12:21)
[2019-11-25] MEDS ORDERED: ePHEDrine sulfate 50 MG/ML AMP IV PRN (12:21)
[2019-11-25] MEDS ORDERED: LABETALOL HCL IV 5 MG/ML 20ML IV PRN (12:21)
[2019-11-25] MEDS ORDERED: MEPERIDINE HCL 25 MG/ML CARP IV PRN (12:21)
[2019-11-25] MEDS ORDERED: ATROPINE SULFATE 0.1 MG/ML 10ML SYR IV PRN (12:21)
--- NOTE | 2019-11-25 13:35 | Post Operative Brief Note ---
Immediate Post Op Note v1 Date of Surgery November 25, 2019 Pre & Post Diagnosis Operation Date: 11/24/19 14:00 Pre-Op Diagnosis: ACUTE CHOLECYSTITIS, PANCREATITIS Post-Op Diagnosis: ACUTE CHOLECYSTITIS, PANCREATITIS, Operation Date: 11/25/19 12:30 Pre-Op Diagnosis: Acute Cholecystitis, Pancreatitis Post-Op Diagnosis: Acute Cholecystitis, Pancreatitis I identified the patient and participated in the time-out.: Yes Procedure Operation Date: 11/24/19 14:00 Actual Procedures p Endoscopic Retrograde Cholangiopancreatography, Stent insertion - Ezra Dash MD Operation Date: 11/25/19 12:30 Actual Procedures p Laparoscopic Cholecystectomy(Not Applicable) - Melissa Sutton MD Surgeon Melissa Sutton MD Contract Law Specialist TUAN Fraser Estimated Blood Loss 20 Findings Consistent with Post-Op Diagnosis significant inflammation on gallbladder wall, with gangrene gallbladder Fluids 1000ml Specimens gallbladder Anesthesia Type General Complications none Disposition Accompanied Patient To Recovery: Yes Disposition: Recovery Room Overlapping Procedure I was immediately available: during the entire case.
[2019-11-25] MEDS ORDERED: ePHEDrine sulfate 50 MG/ML AMP ONE (13:42)
[2019-11-25] MEDS ORDERED: INSULIN ASPART PER UNIT ONE (14:23)
[2019-11-25] MEDS ORDERED: INSULIN ASPART PER UNIT 6 UNITS in SYRINGE 0 ML SC STA (14:25)
--- NOTE | 2019-11-25 14:35 | Operative Report ---
DATE OF OPERATION: 11/25/2019 PREOPERATIVE DIAGNOSES: Acute cholecystitis, cholelithiasis. POSTOPERATIVE DIAGNOSES: Acute cholecystitis with gangrene gallbladder. PROCEDURE: Laparoscopic cholecystectomy. SURGEON: Melissa Sutton MD. RESEARCH GENETICIST: Archana Ewing PA-C. ANESTHESIA: General. ESTIMATED BLOOD LOSS: About 20 mL. FINDINGS: Significant inflammation on the gallbladder wall, gangrene gallbladder. COMPLICATIONS: None. INDICATIONS FOR THE PROCEDURE: This is a 54-year-old gentleman who was admitted to the hospital for acute cholecystitis and common bile duct stone. The patient had an ERCP yesterday and today we recommended to do the laparoscopic cholecystectomy. I did talk to the patient about the benefit, risk, alternate procedure. I indicated the risks may include but not limited to such as bleeding, infection, injury to common bile duct, bile leak, abscess, sepsis, multiple organ failure, even . The patient understands that. He signed informed consent and I answered all questions. DETAILS OF PROCEDURE: We brought the patient to the OR, put the patient in the supine position. The patient received SCD on bilateral legs to prevent DVT. Also, patient received 2 grams of Ancef IV for prophylactic antibiotic. The patient received general anesthesia without difficulties. Abdomen was prepped and draped in routine sterile fashion. After timeout, I injected the local anesthesia by using 1% lidocaine mixed with 0.5% Marcaine just above the umbilicus, then I made a small incision just above the umbilicus, opened fascia and opened peritoneum under direct vision, put a Tuan trocar in and connected to CO2 to create pneumoperitoneum, flow rate at 6 liters per minute, pressure not more than 14 mmHg. Once we got a nice pneumoperitoneum, we put a camera in, looked around the abdomen, which shows normal finding on the liver; however, significant inflammation gangrene gallbladder. There are omental adhesions to the gallbladder, confirmed diagnosis of acute cholecystitis. Then, we put another two 5 mm trocars on the right upper quadrant, one 11 trocar on the epigastric area. Once all trocars in, we put a grasper to hold the base of gallbladder, put in the direction to the diaphragm, another grasper to peel down the omentum that covers the gallbladder and hold the pouch of gallbladder, put a lateral to expose the triangle of Calot. The cystic duct was identified and mobilized. The cystic duct had significant dilatation to about 1 cm. I used a 10 mm metal clip on the proximal cystic duct x2, another 10 mm metal clip on the proximal cystic duct. I then used a scissor for transection of cystic duct. Rechecked and no bile leak and no active bleeding. Then the cystic artery was identified and mobilized. I put two 10 mm metal clips on the cystic artery proximally, one on the distal cystic artery, then used a scissor for transection of cystic artery. Rechecked, no active bleeding. Then, we used Bovie to take down the gallbladder from the liver bed. Rechecked and no active bleeding, no bile leak from the liver bed. Then, we removed the gallbladder through the catch bag. Then, we reinserted the Tuan trocar in, connected to CO2 to create pneumoperitoneum, again looked around the abdomen, no active bleeding from the liver bed, no bile leak from the liver bed. Then, we removed all trocars under direct vision. No active bleeding from the trocar sites. Pneumoperitoneum was released. Then, I closed the umbilical incision, fascial layer by using #1 Vicryl [id number] x2, closed subcutaneous layer by using 2-0 Vicryl interruptedly, closed skin by using 4-0 Vicryl continuous running, closed the epigastric area 11 trocar site fascial layer by using #1 Vicryl [id number] x2, closed subcutaneous layer by using 2-0 Vicryl interruptedly, closed skin by using 4-0 Vicryl interruptedly, closed another two 5 mm trocar site skin only by using 4-0 Vicryl. Then we put the dressing on. The patient tolerated the procedure well. All instrument, needle and sponge count were correct x2 at the end of the case. The patient was transferred to recovery room in stable condition. The specimen was sent to pathology. After procedure, I did talk to the patient's about the OR finding and procedure we did, she understands. I attest to the content of the Intraoperative Record and any orders documented therein. Any exception s are noted below.
[2019-11-25] MEDS ORDERED: LORazepam 1 MG TAB PO PRN (14:50)
--- NOTE | 2019-11-25 14:52 | Anesthesiology Progress Note ---
Date of Service November 25, 2019 Anesthesia Post Procedure Vital Signs Vital Signs: Temp Pulse Pulse Pulse Resp BP Pulse Ox 11/25/19 14:30 87 16 152/83 H 96 11/25/19 14:20 90 16 134/79 96 11/25/19 14:10 86 16 138/77 96 11/25/19 14:00 93 H 16 138/76 96 11/25/19 13:53 36.9 C 89 16 132/71 97 11/25/19 11:37 37.1 C 97 H 18 176/92 H 98 11/25/19 07:38 36.9 C 91 H 18 150/80 H 96 11/25/19 03:55 36.9 C 89 16 143/83 H 96 11/24/19 23:09 37.0 C 95 H 16 141/79 H 98 11/24/19 19:23 36.9 C 98 H 18 142/80 H 97 11/24/19 18:16 36.7 C 84 15 113/70 95 11/24/19 17:02 36.8 C 83 16 116/71 96 11/24/19 16:29 36.6 C 86 16 125/76 95 11/24/19 16:00 36.9 C 92 H 16 117/72 95 11/24/19 15:55 37.2 C 91 H 10 L 133/69 97 11/24/19 15:45 95 H 16 114/63 96 11/24/19 15:35 92 H 12 116/66 95 11/24/19 15:25 97 H 19 115/68 94 11/24/19 15:17 36.9 C 105 H 10 L 122/69 95 Pain Intensity Right Upper Abdomen: Pain Intensity: 3 Transfer of Care Handoff Completed per policy Notes Mental Status: alert / awake / arousable Patient Amnestic to Procedure: Yes Nausea / Vomiting: adequately controlled Pain: adequately controlled Airway Patency, RR, SpO2: stable & adequate BP & HR: stable & adequate Hydration State: stable & adequate Anesthetic Complications: no major complications apparent and Pt Satisfied with anesthetic care Notes: The patient did well. He was given 5 units Novolog preop. Postop BSG was 242. He was given 6 more units of Novolog SC in PACU. I spoke with Christina Sorensen who will follow up with his BSG on the floor.
[2019-11-25] MEDS ORDERED: Nursing to Pharmacy Communication ONE (15:11)
[2019-11-25] MEDS: HYDROmorphone INJ 0.5 MG/0.5 ML SYR IV PRN ×2 (15:48→23:58)
[2019-11-25] MEDS: LACTATED RINGER'S 1,000 ML IV SCH (15:48)
[2019-11-25] MEDS: OXYCODONE/ACETAMINOPHEN 5mg/325mg TAB PO PRN ×2 (17:55→22:01)
[2019-11-25] MEDS: LORazepam 1 MG TAB PO PRN (20:23)
[2019-11-25] MEDS: INSULIN GLARGINE SOLOSTAR 100 UNITS/ML 3 ML PEN SC SCH (21:04)
[2019-11-26] MEDS: LACTATED RINGER'S 1,000 ML IV SCH ×2 (02:57→14:58)
[2019-11-26] MEDS: PIPERACILLIN/TAZOBACTAM 3.375 GM in DEXTROSE 5% 100 ML IV SCH ×3 (03:02→20:02)
[2019-11-26] MEDS: OXYCODONE/ACETAMINOPHEN 5mg/325mg TAB PO PRN ×5 (03:05→20:54)
[2019-11-26 05:34] LABS: Basophils # (auto) 0.01 K/uL (0-0.2); Basophils % (auto) 0.1 %; Eosinophils # (auto) 0.11 K/uL (0-0.5); Eosinophils % (auto) 0.8 %; Hematocrit (blood only) 36.8 % (42-52); Hemoglobin 12.7 g/dL (14.0-18.0); Immature Granulocytes # (auto) 0.05 K/uL (0.00-0.02); Immature Granulocytes % (auto) 0.4 %; Lymphocytes # (auto) 1.52 K/uL (1.2-3.4); Mean Corpuscular Hemoglobin 30.3 pg (25-34); Mean Corpuscular Hgb Conc 34.5 g/dL (32-36); Mean Corpuscular Volume 87.8 fL (80-100); Mean Platelet Volume 10.6 fL (7.4-10.4); Monocytes # (auto) 0.87 K/uL (0.11-0.59); Monocytes % (auto) 6.3 %; Neutrophils % (auto) 81.4 %; Platelet Count 169 K/uL (130-400); RDW Coefficient of Variation 13.7 % (11.5-14.5); Red Blood Count 4.19 M/uL (4.7-6.1); White Blood Count 13.86 K/uL (4.8-10.8)
[2019-11-26 05:52] LABS: Albumin Level 2.5 gm/dl (3.4-5.0); BUN Creatinine Ratio 18.1 (10-20); Creatinine Clr Calc Pharmacy 111.5 ml/min; Est GFR (African American) 112.6; Est GFR (Non-African American) 97.2; Potassium 3.8 mmol/L (3.5-5.1)
[2019-11-26 06:02] LABS: Albumin Globulin Ratio 0.7 (0.9-2); Bilirubin,Total 3.4 mg/dl (0.2-1); Globulin 3.7 gm/dl (2.5-4.0); Total Protein 6.2 gm/dl (6.4-8.2)
[2019-11-26] MEDS: metroNIDAZOLE 500 MG/100 ML BAG IV SCH (07:59)
[2019-11-26] MEDS: INSULIN ASPART 100 UNITS/ML 3 ML PEN SC SCH ×4 (08:31→20:55)
[2019-11-26] MEDS: CEROVITE ADV FORMULA TAB PO SCH (08:34)
--- NOTE | 2019-11-26 08:41 | Surgery Progress Note ---
Date of Service November 26, 2019 Assessment & Plan (1) Acute cholecystitis: POD # 1 s/p laparoscopic cholecystectomy -vitals stable, afebrile - leukocytosis improved to 13K (19K) - moderate post op pain, controlled - LFTs and t. bili improving but still elevated Plan: advance diet as tolerated, fulls for lunch , dm diet for dinner encourage ambulation and incentive spirometry continue IV abx given cholangitis repeat am labs including cbc, cmp continue medical management (2) Cholangitis: POD # 2 s/p ERCP with biliary stent plan as above Dr. Nielson has seen and examined pt, agrees with above Subjective sore at incision sites had difficulty with beef broth last night no nausea or vomiting pain controlled with oral percocet and IV dilaudid Physical Exam Constitutional: WD/WN, vitals as above no acute distress Respiratory: normal respiratory effort; no respiratory distress Gastrointestinal (Abdomen): Inspection/Auscultation: abdomen normal to inspection and normal bowel sounds; abdomen not distended Percussion/Palpation: + abdomen tender (incisions only) and abdomen soft; no guarding and abdomen not rigid Skin: no rashes, warm and dry Psychiatric: A+Ox3, euthymic affect Results & Data Vital Signs (Past 12 Hours) Vital Signs Temp Pulse Pulse Resp BP BP Pulse Ox 11/26/19 07:06 36.9 C 79 18 169/88 H 97 11/26/19 04:15 157/84 H 11/26/19 03:51 36.8 C 79 16 180/90 H 182/93 H 96 11/26/19 03:09 163/87 H 11/26/19 00:08 167/86 H 11/26/19 00:05 36.8 C 169/88 H 11/25/19 23:40 36.8 C 92 H 18 179/92 H 96 11/25/19 22:39 36.8 C 105 H 20 170/90 H 95 Laboratory Results 11/26/19 11/26/19 11/26/19 Range/Units 08:22 05:19 05:19 WBC 13.86 H (4.8-10.8) K/uL RBC 4.19 L (4.7-6.1) M/uL Hgb 12.7 L (14.0-18.0) g/dL Hct 36.8 L (42-52) % MCV 87.8 (80-100) fL MCH 30.3 (25-34) pg MCHC 34.5 (32-36) g/dL RDW Std Deviation 44.0 (36.4-46.3) fL RDW Coeff of Ryley 13.7 (11.5-14.5) % Plt Count 169 (130-400) K/uL MPV 10.6 H (7.4-10.4) fL Immature Gran % (Auto) 0.4 % Neut % (Auto) 81.4 % Lymph % (Auto) 11.0 % Lipscomb % (Auto) 6.3 % Eos % (Auto) 0.8 % Baso % (Auto) 0.1 % Immature Gran # (Auto) 0.05 H (0.00-0.02) K/uL Neut # (Auto) 11.30 H (1.4-6.5) K/uL Lymph # (Auto) 1.52 (1.2-3.4) K/uL Lipscomb # (Auto) 0.87 H (0.11-0.59) K/uL Eos # (Auto) 0.11 (0-0.5) K/uL Baso # (Auto) 0.01 (0-0.2) K/uL Sodium 137 (136-145) mmol/L Potassium 3.8 (3.5-5.1) mmol/L Chloride 105 (98-107) mmol/L Carbon Dioxide 27 (21-32) mmol/L Anion Gap 5.0 (3-11) BUN 16 (7-18) mg/dl Creatinine 0.87 (0.6-1.4) mg/dl Est Cr Clr Drug Dosing 111.5 ml/min Est GFR ( Amer) 112.6 Est GFR (Non-Af Amer) 97.2 BUN/Creatinine Ratio 18.1 (10-20) Glucose 216 H (70-99) mg/dl POC Glucose 189 H (70-99) Calcium 8.0 L (8.5-10.1) mg/dl Total Bilirubin 3.4 H (0.2-1) mg/dl AST 210 H (15-37) U/L ALT 560 H (12-78) U/L Alkaline Phosphatase 130 H (45-117) U/L Total Protein 6.2 L (6.4-8.2) gm/dl Albumin 2.5 L (3.4-5.0) gm/dl Globulin 3.7 (2.5-4.0) gm/dl Albumin/Globulin Ratio 0.7 L (0.9-2) 11/25/19 11/25/19 11/25/19 Range/Units 20:55 17:15 13:53 WBC (4.8-10.8) K/uL RBC (4.7-6.1) M/uL Hgb (14.0-18.0) g/dL Hct (42-52) % MCV (80-100) fL MCH (25-34) pg MCHC (32-36) g/dL RDW Std Deviation (36.4-46.3) fL RDW Coeff of Ryley (11.5-14.5) % Plt Count (130-400) K/uL MPV (7.4-10.4) fL Immature Gran % (Auto) % Neut % (Auto) % Lymph % (Auto) % Lipscomb % (Auto) % Eos % (Auto) % Baso % (Auto) % Immature Gran # (Auto) (0.00-0.02) K/uL Neut # (Auto) (1.4-6.5) K/uL Lymph # (Auto) (1.2-3.4) K/uL Lipscomb # (Auto) (0.11-0.59) K/uL Eos # (Auto) (0-0.5) K/uL Baso # (Auto) (0-0.2) K/uL Sodium (136-145) mmol/L Potassium (3.5-5.1) mmol/L Chloride (98-107) mmol/L Carbon Dioxide (21-32) mmol/L Anion Gap (3-11) BUN (7-18) mg/dl Creatinine (0.6-1.4) mg/dl Est Cr Clr Drug Dosing ml/min Est GFR ( Amer) Est GFR (Non-Af Amer) BUN/Creatinine Ratio (10-20) Glucose (70-99) mg/dl POC Glucose 247 H 214 H 242 H (70-99) Calcium (8.5-10.1) mg/dl Total Bilirubin (0.2-1) mg/dl AST (15-37) U/L ALT (12-78) U/L Alkaline Phosphatase (45-117) U/L Total Protein (6.4-8.2) gm/dl Albumin (3.4-5.0) gm/dl Globulin (2.5-4.0) gm/dl Albumin/Globulin Ratio (0.9-2) 11/25/19 Range/Units 11:23 WBC (4.8-10.8) K/uL RBC (4.7-6.1) M/uL Hgb (14.0-18.0) g/dL Hct (42-52) % MCV (80-100) fL MCH (25-34) pg MCHC (32-36) g/dL RDW Std Deviation (36.4-46.3) fL RDW Coeff of Ryley (11.5-14.5) % Plt Count (130-400) K/uL MPV (7.4-10.4) fL Immature Gran % (Auto) % Neut % (Auto) % Lymph % (Auto) % Lipscomb % (Auto) % Eos % (Auto) % Baso % (Auto) % Immature Gran # (Auto) (0.00-0.02) K/uL Neut # (Auto) (1.4-6.5) K/uL Lymph # (Auto) (1.2-3.4) K/uL Lipscomb # (Auto) (0.11-0.59) K/uL Eos # (Auto) (0-0.5) K/uL Baso # (Auto) (0-0.2) K/uL Sodium (136-145) mmol/L Potassium (3.5-5.1) mmol/L Chloride (98-107) mmol/L Carbon Dioxide (21-32) mmol/L Anion Gap (3-11) BUN (7-18) mg/dl Creatinine (0.6-1.4) mg/dl Est Cr Clr Drug Dosing ml/min Est GFR ( Amer) Est GFR (Non-Af Amer) BUN/Creatinine Ratio (10-20) Glucose (70-99) mg/dl POC Glucose 232 H (70-99) Calcium (8.5-10.1) mg/dl Total Bilirubin (0.2-1) mg/dl AST (15-37) U/L ALT (12-78) U/L Alkaline Phosphatase (45-117) U/L Total Protein (6.4-8.2) gm/dl Albumin (3.4-5.0) gm/dl Globulin (2.5-4.0) gm/dl Albumin/Globulin Ratio (0.9-2)
--- NOTE | 2019-11-26 09:44 | Anesthesiology Progress Note ---
Date of Service November 26, 2019 Anesthesia Post Procedure Vital Signs Vital Signs: Temp Pulse Pulse Pulse Resp BP BP 11/26/19 07:06 36.9 C 79 18 169/88 H 11/26/19 04:15 157/84 H 11/26/19 03:51 36.8 C 79 16 180/90 H 182/93 H 11/26/19 03:09 163/87 H 11/26/19 00:08 167/86 H 11/26/19 00:05 36.8 C 169/88 H 11/25/19 23:40 36.8 C 92 H 18 179/92 H 11/25/19 22:39 36.8 C 105 H 20 170/90 H 11/25/19 17:46 36.9 C 97 H 16 157/80 H 11/25/19 16:51 37.1 C 92 H 16 150/84 H 11/25/19 15:43 36.9 C 99 H 16 162/86 H 11/25/19 15:18 36.8 C 88 16 158/87 H 11/25/19 14:45 37.1 C 88 16 154/84 H 11/25/19 14:30 87 16 152/83 H 11/25/19 14:20 90 16 134/79 11/25/19 14:10 86 16 138/77 11/25/19 14:00 93 H 16 138/76 11/25/19 13:53 36.9 C 89 16 132/71 11/25/19 11:37 37.1 C 97 H 18 176/92 H Pulse Ox 11/26/19 07:06 97 11/26/19 04:15 11/26/19 03:51 96 11/26/19 03:09 11/26/19 00:08 11/26/19 00:05 11/25/19 23:40 96 11/25/19 22:39 95 11/25/19 17:46 96 11/25/19 16:51 95 11/25/19 15:43 97 11/25/19 15:18 99 11/25/19 14:45 98 11/25/19 14:30 96 11/25/19 14:20 96 11/25/19 14:10 96 11/25/19 14:00 96 11/25/19 13:53 97 12/26/19 11:37 98 Pain Intensity Right Upper Abdomen: Pain Intensity: 4 Notes Mental Status: alert / awake / arousable Patient Amnestic to Procedure: Yes Nausea / Vomiting: adequately controlled Pain: adequately controlled Airway Patency, RR, SpO2: stable & adequate BP & HR: stable & adequate Hydration State: stable & adequate Anesthetic Complications: no major complications apparent and Pt Satisfied with anesthetic care
--- NOTE | 2019-11-26 13:36 | Hospitalist Progress Note ---
Date of Service November 26, 2019 Assessment & Plan (1) SIRS (systemic inflammatory response syndrome): - Improving - in setting of acute cholecystitis/cholangitis (2) Acute cholecystitis: - Associated choledocholithiasis and ascending cholangitis - S/P ERCP on 11/24 - choledocholithiais with sphincterotomy, pus indicating ascending cholangitis, and 2 stents placed in the CBD - S/P Lap Weston on 11/25 - LFTS trending down; Lipase improving - continue to trend - Continue Zosyn therapy; supportive measures with pain control/anti-emetics - Advancing diet as tolerated - GI followed - Recommend no NSAIDs x 5 days, Abx x 10 days, and ERCP in 4-6 wks for stent removal - and signed off - Gen Surg following - discussed with Archana Ewing - appreciate input (3) Pancreatitis: - In the setting of choledocholithiasis now S/P stone removal - Lipase trending down - Continue IVF at 125 mL/hr (4) Ascending cholangitis: - Treatment as above; will need at least Abx x 10 days (5) DM type 2 (diabetes mellitus, type 2): - A1c 9.7 -- PCP planning on increasing Metformin and lifestyle factors and if not successful then possible insulin therapy - Hold Metformin and Trulicity - Continue BSGs and ISS/Lantus (6) DVT prophylaxis: - SCDs Disposition: From home; await surgical recovery; no needs anticipated Supervising Physician Co-Signing Physician Notes Pt chart reviewed and discussed with PA. Pt transferred from [facility] with acute cholecystitis and pancreatitis Improving clinically s/p lap weston on 11/25 LFTs improving Subjective Reports feeling better today. Pain is controlled. Tolerated breakfast. Had intolerance to beef broth yesterday. Labs continue to improve. Discussed his sugars and he is a close friend with his PCP and planning on making some medication adjustments. Verbalizes no new complaints at this time. Review of Systems Constitutional: no fever, no chills and no anorexia Ear, Nose, Mouth, Throat: no sore throat and no dysphagia Respiratory: no cough and no dyspnea Cardiovascular: no chest pain, no palpitations and no edema Gastrointestinal: + abdominal pain (intermittent - surgical sites - relieved with pain meds); no nausea, no vomiting, no constipation and no diarrhea/loose stools Genitourinary: no dysuria Musculoskeletal: no body aches Integumentary: no rash Physical Exam Constitutional: WD/WN, vitals as above ENMT: Ears: no hearing impairment Neck: trachea midline Respiratory: normal respiratory effort, lungs clear to auscultation Cardiovascular: RRR, no murmur, no edema Gastrointestinal (Abdomen): Inspection/Auscultation: + abdomen distended (mild but soft) and normal bowel sounds Percussion/Palpation: + abdomen tender (around surgical sites with dressings placed) and abdomen soft; no guarding and abdomen not rigid Musculoskeletal: Head/Neck/Chest: normocephalic and head atraumatic Skin: no rashes, warm and dry Neurologic: moves all extremities Psychiatric: A+Ox3, euthymic affect Results & Data Vital Signs (Past 12 Hours) Vital Signs Temp Pulse Pulse Resp BP BP Pulse Ox 11/26/19 12:27 165/85 H 11/26/19 12:14 36.5 C 76 19 179/92 H 97 11/26/19 07:06 36.9 C 79 18 169/88 H 97 11/26/19 04:15 157/84 H 11/26/19 03:51 36.8 C 79 16 180/90 H 182/93 H 96 11/26/19 03:09 163/87 H PG Care Time/CCT Total # of Minutes Spent Total Time Spent with Patient: Total time spent is greater than 50% in coordination of care (as documented) at patient's floor/unit and/or counseling patient:
[2019-11-26] MEDS: INSULIN GLARGINE SOLOSTAR 100 UNITS/ML 3 ML PEN SC SCH (20:54)
[2019-11-26] MEDS: LORazepam 1 MG TAB PO PRN (20:54)
[2019-11-27] MEDS: HYDROmorphone INJ 0.5 MG/0.5 ML SYR IV PRN (00:05)
[2019-11-27] MEDS: LACTATED RINGER'S 1,000 ML IV SCH ×2 (02:48→14:51)
[2019-11-27] MEDS: PIPERACILLIN/TAZOBACTAM 3.375 GM in DEXTROSE 5% 100 ML IV SCH ×3 (04:11→21:03)
[2019-11-27 05:56] LABS: Basophils # (auto) 0.03 K/uL (0-0.2); Basophils % (auto) 0.2 %; Eosinophils % (auto) 6.4 %; Hematocrit (blood only) 37.5 % (42-52); Immature Granulocytes # (auto) 0.06 K/uL (0.00-0.02); Immature Granulocytes % (auto) 0.5 %; Lymphocytes # (auto) 2.88 K/uL (1.2-3.4); Lymphocytes % (auto) 23.2 %; Mean Corpuscular Hemoglobin 30.4 pg (25-34); Mean Corpuscular Hgb Conc 34.7 g/dL (32-36); Mean Corpuscular Volume 87.6 fL (80-100); Mean Platelet Volume 10.6 fL (7.4-10.4); Monocytes # (auto) 1.37 K/uL (0.11-0.59); Neutrophils % (auto) 58.7 %; Platelet Count 216 K/uL (130-400); RDW Coefficient of Variation 13.9 % (11.5-14.5); RDW Standard Deviation 44.5 fL (36.4-46.3); Red Blood Count 4.28 M/uL (4.7-6.1); White Blood Count 12.44 K/uL (4.8-10.8)
[2019-11-27] MEDS: OXYCODONE/ACETAMINOPHEN 5mg/325mg TAB PO PRN ×3 (06:00→21:03)
[2019-11-27 06:31] LABS: Albumin Level 2.6 gm/dl (3.4-5.0); BUN Creatinine Ratio 13.5 (10-20); Calcium 8.4 mg/dl (8.5-10.1); Est GFR (Non-African American) 85.4; Potassium 3.8 mmol/L (3.5-5.1)
[2019-11-27 06:35] LABS: Albumin Globulin Ratio 0.7 (0.9-2); Bilirubin,Total 3.6 mg/dl (0.2-1); Globulin 3.7 gm/dl (2.5-4.0); Total Protein 6.3 gm/dl (6.4-8.2)
--- NOTE | 2019-11-27 08:27 | Surgery Progress Note ---
Date of Service November 27, 2019 Assessment & Plan (1) Acute cholecystitis: POD 2 lap weston, day 3 ERCP LFTs initially down but unchanged today would keep here today, repeat in AM seen also by Dr. Calvin Subjective some soreness, overall about the same as yesterday, no N/V, tolerating diet Physical Exam Gastrointestinal (Abdomen): Inspection/Auscultation: abdomen not distended Percussion/Palpation: abdomen soft Results & Data Vital Signs (Past 12 Hours) Vital Signs Temp Pulse Resp BP Pulse Ox 11/27/19 07:56 36.7 C 72 16 176/90 H 98 11/27/19 04:13 167/91 H 11/27/19 00:11 174/96 H 11/26/19 23:30 36.7 C 74 20 193/97 H 98 PG Care Time/CCT Total # of Minutes Spent Total Time Spent with Patient: Total time spent is greater than 50% in coordination of care (as documented) at patient's floor/unit and/or counseling patient:
[2019-11-27] MEDS: CEROVITE ADV FORMULA TAB PO SCH (09:21)
[2019-11-27] MEDS: INSULIN ASPART 100 UNITS/ML 3 ML PEN SC SCH ×4 (09:23→21:10)
[2019-11-27] MEDS ORDERED: bisacodyL 5 MG TABEC PO PRN (11:40)
[2019-11-27] MEDS ORDERED: POLYETHYLENE (MIRALAX) 17 GM PACK PO PRN (11:40)
[2019-11-27] MEDS: HydrALAZINE HCL 20 MG/ML VIAL IV PRN (14:49)
--- NOTE | 2019-11-27 20:21 | Hospitalist Progress Note ---
Date of Service November 27, 2019 Assessment & Plan (1) SIRS (systemic inflammatory response syndrome): - Improving - in setting of acute cholecystitis/cholangitis (2) Acute cholecystitis: - Associated choledocholithiasis and ascending cholangitis - S/P ERCP on 11/24 - choledocholithiais with sphincterotomy, pus indicating ascending cholangitis, and 2 stents placed in the CBD - S/P Lap Reina on 11/25 - LFTS were trending down but slightly elevated today however WBC is improving; Lipase improving - continue to trend - Continue Zosyn therapy; supportive measures with pain control/anti-emetics - Advancing diet as tolerated - Bowel regimen ordered - last BM 11/23 and likely contributing to some symptoms but is passing flatus - GI followed - did discuss with Dr. Dash given labs - likely some post- operative changes/WBC is improving and would monitor at this time - no indication for intervention at current time; Recommend no NSAIDs x 5 days, Abx x 10 days, and ERCP in 4-6 wks for stent removal - Gen Surg following - - appreciate input (3) Pancreatitis: - In the setting of choledocholithiasis now S/P stone removal - Lipase trending down; tolerating diet - Continue IVF at 125 mL/hr (4) Ascending cholangitis: - Treatment as above; will need at least Abx x 10 days (5) DM type 2 (diabetes mellitus, type 2): - A1c 9.7 -- PCP planning on increasing Metformin and lifestyle factors and if not successful then possible insulin therapy - Hold Metformin and Trulicity - Continue BSGs and ISS/Lantus (6) DVT prophylaxis: - SCDs Disposition: From home; await surgical recovery; no needs anticipated Subjective Reports feeling well overall. States he is tolerated his diet but feeling full quicker. Has not moved his bowels since Friday but passing flatus. Remains afebrile and leukocytosis is improving. LFTs slightly bumped up from previous day and will monitor. Verbalizes no complaints at this time Review of Systems Constitutional: no fever, no chills and no anorexia Respiratory: no cough and no dyspnea Cardiovascular: no chest pain Gastrointestinal: + abdominal pain, + bloating and + constipation; no nausea, no vomiting and no diarrhea/loose stools Genitourinary: no dysuria Integumentary: no rash Physical Exam 2 Constitutional: WD/WN, vitals as above ENMT: Ears: no hearing impairment Neck: trachea midline Respiratory: normal respiratory effort, lungs clear to auscultation Cardiovascular: RRR, no murmur, no edema Gastrointestinal (Abdomen): Inspection/Auscultation: + abdomen distended (mild but soft) and normal bowel sounds Percussion/Palpation: + abdomen tender (around surgical sites with dressings placed) and abdomen soft; no guarding and abdomen not rigid Musculoskeletal: Head/Neck/Chest: normocephalic and head atraumatic Skin: no rashes, warm and dry Neurologic: moves all extremities Psychiatric: A+Ox3, euthymic affect Results & Data Vital Signs (Past 12 Hours) Vital Signs Temp Pulse Resp BP Pulse Ox 11/27/19 17:53 87 155/84 H 11/27/19 15:50 36.8 C 81 18 177/93 H 98 11/27/19 14:47 177/95 H PG Care Time/CCT Total # of Minutes Spent Total Time Spent with Patient: Total time spent is greater than 50% in coordination of care (as documented) at patient's floor/unit and/or counseling patient:
[2019-11-27] MEDS: LORazepam 1 MG TAB PO PRN (21:03)
[2019-11-27] MEDS: INSULIN GLARGINE SOLOSTAR 100 UNITS/ML 3 ML PEN SC SCH (21:11)
[2019-11-28] MEDS: HydrALAZINE HCL 20 MG/ML VIAL IV PRN ×2 (00:12→07:58)
[2019-11-28] MEDS: LACTATED RINGER'S 1,000 ML IV SCH (02:58)
[2019-11-28] MEDS: PIPERACILLIN/TAZOBACTAM 3.375 GM in DEXTROSE 5% 100 ML IV SCH ×2 (04:18→13:01)
[2019-11-28 05:50] LABS: Hematocrit (blood only) 40.6 % (42-52); Hemoglobin 14.4 g/dL (14.0-18.0); Mean Corpuscular Hemoglobin 31.2 pg (25-34); Mean Corpuscular Hgb Conc 35.5 g/dL (32-36); Mean Corpuscular Volume 87.9 fL (80-100); Mean Platelet Volume 10.8 fL (7.4-10.4); Platelet Count 273 K/uL (130-400); RDW Coefficient of Variation 14.2 % (11.5-14.5); RDW Standard Deviation 45.7 fL (36.4-46.3); Red Blood Count 4.62 M/uL (4.7-6.1); White Blood Count 15.51 K/uL (4.8-10.8)
[2019-11-28 06:07] LABS: Albumin Level 2.9 gm/dl (3.4-5.0); BUN Creatinine Ratio 15.9 (10-20); Calcium 9.1 mg/dl (8.5-10.1); Creatinine Clr Calc Pharmacy 118.3 ml/min; Est GFR (African American) 115.4; Est GFR (Non-African American) 99.6; Potassium 3.8 mmol/L (3.5-5.1)
[2019-11-28 06:09] LABS: Albumin Globulin Ratio 0.6 (0.9-2); Bilirubin,Total 3.2 mg/dl (0.2-1); Globulin 4.5 gm/dl (2.5-4.0); Total Protein 7.4 gm/dl (6.4-8.2)
[2019-11-28] MEDS: CEROVITE ADV FORMULA TAB PO SCH (08:55)
[2019-11-28] MEDS: INSULIN ASPART 100 UNITS/ML 3 ML PEN SC SCH (08:57)
--- NOTE | 2019-11-28 11:30 | Surgery Progress Note ---
Date of Service November 28, 2019 Assessment & Plan (1) Acute cholecystitis: POD#3 lap weston, POD#4 ERCP Patient's WBC 15 today. He remains afebrile LFT's overall downtrending with the exception of a slight uptrend in the alk p. Tbili: 3.2 (3.6), AST: 155 (255), ALT: 517 (570), Lipase 291 (491), AlkP: 206 (163) Patient tolerating a diet Complete course of abx Will leave instructions for patient to follow up with Dr. Sutton within 1 wk. Dispo pending per medicine and GI clearance Patient seen and examined with Dr. Calvin Subjective Patient states that he is feeling better. Says his urine is clearing up. Tolerating a diet. Physical Exam Physical Exam: awake/alert Constitutional: well developed and well nourished; no acute distress Results & Data Vital Signs (Past 12 Hours) Vital Signs Temp Pulse Resp BP Pulse Ox 11/28/19 09:00 148/81 H 11/28/19 08:05 88 173/87 H 11/28/19 07:20 36.7 C 82 18 166/96 H 98 11/28/19 01:10 143/77 H 11/27/19 23:39 36.8 C 67 16 165/80 H 98 PG Care Time/CCT Total # of Minutes Spent Total Time Spent with Patient: Total time spent is greater than 50% in coordination of care (as documented) at patient's floor/unit and/or counseling patient:
[2019-11-28] MEDS ORDERED: metroNIDAZOLE 500 MG TAB PO STA (12:21)
[2019-11-28] MEDS ORDERED: CIPROFLOXACIN 500 MG TAB PO STA (12:21)
--- NOTE | 2019-11-28 17:00 | Discharge Summary ---
Date of Service November 28, 2019 Admission HPI Per Admitting Provider This is a 54 yo M with PMHx of noninsulin dependent diabetes who presents from outside hospital, [facility], for acute cholecystitis and pancreatitis. Patient's pain began on Friday. He had eaten a Whopper from [place] on Friday for dinner and the pain began about 2 hrs later. On Friday he did not have any abd issues. Yesterday the patient proceeded to go about his normal ADLs, but then had dinner which was scrapple fried in butter, and reported that his pain worsened over the course of the next 5 hours. He admits to drinking socially over the weekend prior to sx - had [place] x 5 drinks on Friday and also had two beers on Friday night. He presented to [facility] last evening was found to have a WBC = 18 K, bilirubin = 1.3, and was started on IV Cipro/Flagyl. He was afebrile throughout their stay there. Upon repeat labs this morning at OSH he was found to have WBC=24, bilirubin up to 4.6. Lipase = 4984, and AST = 867, there hospital does not have on-call maintenance technician 3rd shift to perform ERCP/MRCP nor did they have gastroenterology or surgery available today with the holiday. The patient is here with his . He notes his pain is very well controlled at this point, and denies abdominal discomfort and nausea. He has not eaten since Friday evening. Principal Diagnosis Choledocholithiasis with Pancreatitis; Acute Cholecystitis S/P Lap Reina; Cholangitis Discharge Exam Constitutional WD/WN, vitals as above ENMT Ears: no hearing impairment Neck trachea midline Respiratory normal respiratory effort, lungs clear to auscultation Cardiovascular RRR, no murmur, no edema Gastrointestinal (Abdomen) Inspection/Auscultation: normal bowel sounds Percussion/Palpation: + abdomen tender (around surgical sites with dressings placed) and abdomen soft; no guarding and abdomen not rigid Musculoskeletal Head/Neck/Chest: normocephalic and head atraumatic Skin no rashes, warm and dry Neurologic moves all extremities Psychiatric A+Ox3, euthymic affect Discharge Data Allergies Allergy/AdvReac Type Severity Reaction Status Date / Time Sulfa (Sulfonamide Allergy Rash Verified 11/24/19 13:06 Antibiotics) Consultations 11/24/19 11:27 Consult Gastroenterology Routine 11/24/19 11:29 Consult Case Management - Discharge Planning Routine 11/26/19 08:30 Consult General Surgery Routine Procedures Performed Operation Date: 11/24/19 14:00 Actual Procedures p Endoscopic Retrograde Cholangiopancreatography, Stent insertion - Ezra Dash MD Operation Date: 11/25/19 12:30 Actual Procedures p Laparoscopic Cholecystectomy(Not Applicable) - Melissa Sutton MD Ordered Studies 11/24/19 [place] ERCP biliary ductal Routine Hospital Course (1) SIRS (systemic inflammatory response syndrome): - Improving - in setting of acute cholecystitis/cholangitis (2) Acute cholecystitis: - Associated choledocholithiasis and ascending cholangitis - S/P ERCP on 11/24 - choledocholithiais with sphincterotomy, pus indicating ascending cholangitis, and 2 stents placed in the CBD - S/P Lap Reina on 11/25 - LFTS trending down Rx provided for recheck of labs in coming days; Lipase resolved - Utilized Zosyn therapy converted to Cipro/Flagyl to complete 10 day course - Diet being tolerated - discussed low fat diet at least initially and slow re- introduction; moving bowels prior to D/C which improved abdominal pain and initial early satiety - GI followed - Dr. Dash ([facility]) - Recommend no NSAIDs x 5 days, Abx x 10 days, and ERCP in 4-6 wks for stent removal - Gen Surg following - Dr. Sutton ([facility]) - plans close outpatient/post- op F/U (3) Pancreatitis: - In the setting of choledocholithiasis now S/P stone removal - Lipase WNL; tolerating diet; treated with fluids (4) Ascending cholangitis: - Treatment as above; will need at least Abx x 10 days total (5) DM type 2 (diabetes mellitus, type 2): - A1c 9.7 - Continue Metformin and Trulicity -- Planning to discuss with PCP - likely can increase Metformin at least initially and lifestyle modifications; defer management to PCP (6) DVT prophylaxis: - SCDs Disposition: From home - no needs identified. Patient was noted to have elevated BP in house. states he normally has normal pressures and likely this could be situational. 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 Again likely can incorporate lifestyle modifications but will need to monitor. Defer to outpatient setting Total Time Total Time Spent Total Time Spent (In Minutes): Greater than 30 minutes Discharge Plan Discharge Items Patient Disposition: Home - Self-Care Reason For Visit: ACUTE CHOLECYSTITIS, PANCREATITIS Discharge Diagnosis: Acute Cholecystitis Cholangitis Pancreatitis Activity: As commented below Non-emergency contact: Surgeon Call non-emergency contact if: you have any medication questions, your symptoms worsen and you have a fever Follow-up/Referrals: Samir Gill [Primary Care Provider] - Diet: Low Fat Ambulatory Orders: Comprehensive Metabolic Panel (Routine) Timeframe: 1 Week Location: Determined by Patient Ordered By: Christina Smith Attending Provider Instructions: Infected Gallbadder with infection near Common Bile Duct and Pancreatitis: - You were admitted because a gallstone was blocking the ducts causing pancreatitis (inflammation of pancreas) and infection in the gallbladder and bile ducts (cholangitis) - You had your gallbladder out so a good portion of the infection is taken care of but will need to continue antibiotics - Your liver tests are trending down and may take a few more days to normalize. Will give a prescription to have these checked to make sure they keep going in the right direction. - Your lipase (pancrease enzyme) is now normal - You will need to follow-up with your GI doctor to have the stents in your common bile duct removed in the next few weeks - Please see instructions from your surgeon below on bathing/driving/etc. - Your antibiotics will be Ciprofloxacin 500 mg twice a day. Take one dose tonight on 11/28 then resume twice a day on 11/29. You will also be on Flagyl 500 mg three times a day. Take one dose tonight as well and then resume twice day on 11/29. - Reasons to return: worsening pain, fevers, ill feeling, drainage or redness from surgical sites Sugars: - Recommend to follow closely with your family doctor and see what medication adjustments are necessary - Recommend a carb consistent diet and increase activity as you recover from surgery Higher Blood Pressure: - Given you have not had blood pressure issues this could be all situational given pain and surgery. Recommend to monitor this and keep track and discuss with your family doctor. 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 No driving while taking pain medication or until you are pain free You may shower beginning 3 days after your surgery date. Remove outer dressings. Leave steri strips on incisions for 7 days and then remove. You will be given Percocet (narcotic pain medication) as needed for moderate to severe pain. Take as directed. You can take extra strength Tylenol as needed for mild pain however monitor how much Tylenol you take as Percocet has Tylenol in it. DO NOT exceed 3,000 mg of Tylenol in 24 hour period. Avoid NSAIDs (Aleve, Motrin, ibuprofen) and aspirin for 1 week Follow-up in surgical office in 2 weeks. Please call office [phone] to make an appointment. Pending Studies at Discharge: Yes (Gallbladder pathology, will be reviewed at follow-up visit) Stand-Alone Forms: [facility], Opioid Pain Management, Smoking Cessation Medications and DC Order Prescriptions: New oxycodone-acetaminophen [Percocet] 5-325 mg Tablet 1 tab PO Q4H PRN (Reason: pain) 3 Days Qty: 10 RF: 0 ciprofloxacin HCl 500 mg tablet 500 mg PO BID Qty: 13 RF: 0 metronidazole 500 mg tablet 500 mg PO Q8H Qty: 19 RF: 0 Continued Centrum Silver 1 tab 1 tab PO DAILY RF: 0 Trulicity 0.75 mg 0.75 mg INJ WK RF: 0 lorazepam 1 mg 1 mg PO HS PRN (Reason: Sleep) RF: 0 metformin 500 mg 500 mg PO BID RF: 0 vit D3-folic [id number] RF: 0 Discharge Orders: Discharge Order (Routine); Ordered 11/28/19 Ordered By: Christina Schroeder/Other Patient Handouts: Diabetes Adoption Specialist Complications, Diabetes Resources, Diabetes Healthy Meals, Diabetes Carbs, Diabetes Exercise Benefits, Diabetes Exercise Get Started, Diabetes Living Life, Diabetes Manage A1C Test Admission Data Admit Date/Time: 11/24/19 11:27 Attending Provider: Aurelio Miller Admit Provider: Adithya Basurto Primary Care Provider: Samir Gill Other Providers: Ezra Dash ; Melissa Sutton Other Interventions: Discharge Summary Assessment (RN) Last Done: 11/28/19 13:07 DC Date/Time DO NOT enter until pt leaves facility: 11/28/19 13:43 Supervising Physician Co-Signing Physician Notes Attending note: patient seen and examined with Christina Sorensne PA-C. I agree with her discharge summary. I personally reviewed the labs and imaging findings. patient feeling much, much better, no pain, eating well reviewed labs, reviewed chart, discussed with specialists cleared for discharge by general surgery - Acute cholecystitis and gall stone pancreatitis s/p cholecystectomy pancreatitis resolved eating well, no pain, labs are normal d/c to home, follow up with PCP and general surgery
== END 2019-11-28 13:43 | disposition home or self-care (01) | DRG 417 ==
LOC: 3W 11:27 → SUATTDRO 11:27